=== PATIENT | male | born 1965 | race Caucasian/White ===

== ENCOUNTER → 2024-08-05 | Outpatient (CLI) | payer MEDICAID, SELFPAY ==
--- NOTE | 2024-08-05 09:24 | RAD_ITS ---
PROCEDURE: CHEST PA AND LATERAL REASON FOR EXAM: COPD. TECHNIQUE: Frontal and lateral views of the chest. COMPARISON: None provided. RAD/Chest PA and Lateral IMPRESSION: Lungs are moderately hyperinflated with increased interstitial markings, consis tent with chronic lung disease. Areas of scarring of the lung bases and right upper lung zone are also noted; can not entirely ex clude a small area of pneumonitis, given the underlying chronic changes and lack of a prior comparison study, however. No evidence of pulmonary edema. No pleural effusion or pneumothorax is evident. The cardiomediastinal silhouette is within the normal range. No acute osseous change is seen. Reading Location: [id number]
[2024-08-05 09:40] LABS: Absolute Lymphocyte Count 1.95 X10^3/uL (0.83-4.51); Absolute Neutrophil Count 10.5 X10^3/uL (2.0-7.7); Basophil# 0.04 X10^3/uL; Basophil% 0.3 % (0-1); Eosinophil# 0.01 X10^3/uL; Eosinophils% 0.1 % (0-5); Hematocrit 39.8 % (40-54); Hemoglobin 13.3 g/dL (13.0-16.5); Lymphocyte # 1.95 X10^3/ul (0.83-4.51); Lymphocyte % 13.5 % (19-41); Mean Corp Hgb Conc 33.4 g/dL (32-36); Mean Corpuscular Hgb 28.5 pg (27.0-32.0); Mean Corpuscular Volume 85.4 fL (80-94); Mean Platelet Vol. 10.3 fl (6.2-12.0); Monocyte# 1.75 X10^3/uL; Monocyte% 12.1 % (0-10); NRBC Flagged by Analyzer 0 % (0-5); Neutrophil # 10.51 X10^3/uL (2.7-7.7); POSITIVE DIFFERENTIAL YES; Platelet Count 225 K/mm3 (150-450); RBC Distribution Width CV 15.6 % (11.6-14.6); RBC Distribution Width SD 48.8 fl (35.1-43.9); Red Blood Count 4.66 M/mm3 (4.6-6.2); White Blood Count 14.4 K/mm3 (4.4-11.0)
[2024-08-05 09:45] LABS: Differential Indicated SCAN CRITERIA MET
[2024-08-05 10:03] LABS: Hemoglobin A1c 5.8 % (<=5.6)
[2024-08-05 10:12] LABS: Pathologist Review May foll
[2024-08-05 10:27] LABS: AST(SGOT) 96 U/L (<=37); Alanine Aminotransfer ALT/SGPT 102 U/L (<=46); Albumin, Serum 3.7 g/dL (3.5-5.0); Alkaline Phosphatase 98 U/L (40-129); Anion Gap 15 (5-15); BUN 10 mg/dL (4-19); BUN/Creat Ratio 10.3 RATIO (10-20); Calcium,Total 8.3 mg/dL (7.6-11.0); Carbon Dioxide 20.9 mmol/L (21.0-32.0); Chloride 98 mmol/L (98-108); Cholesterol 125 mg/dL (<=200); Creatinine, Serum 0.97 mg/dL (0.70-1.20); EST Glomerular Filtration Rate 91 (>60); Globulin 3.7 g/dL (2.2-4.2); Glucose 114 mg/dL (70-99); High Density Lipoprotein 54 mg/dL; Low Density Lipoprotein Calc. 47 mg/dL; Potassium 3.7 mmol/L (3.3-5.1); Protein, Total 7.4 g/dL (5.9-8.4); Sodium Level 134 mmol/L (133-145); Total Bilirubin 0.77 mg/dL (0.00-1.30); Triglycerides 118 mg/dL; Very Low Density Lipoprotein 24 mg/dL (5-40); cholesterol:hdl ratio screen 2.31
[2024-08-05 10:36] LABS: Vitamin B12 443 pg/mL (180-914); Vitamin D,25 Hydroxy 13.7 ng/mL (30-100)
== END | disposition home or self-care (01) ==
PROVIDERS: PCP Nurse Practitioner Family; Referring Provider Nurse Practitioner Family; Visit Provider Nurse Practitioner Family
DX: Z13.1 Encounter for screening for diabetes mellitus (principal); J44.9 Chronic obstructive pulmonary disease, unspecified; R53.83 Other fatigue; Z13.220 Encounter for screening for lipoid disorders
CPT/HCPCS: 36415; 71046; 80053; 80061; 82306; 82607; 83036; 84443; 85025

== ENCOUNTER 2024-08-07 08:04 | Inpatient (IN) | payer MEDICAID, SELFPAY ==
[2024-08-07] VITALS (13 sets, daily range): BP systolic 104–116; BP diastolic 62–81; PULSE 78–110; RESP 16–24; TEMP 36.7–37.2; O2SAT 93–97; BMI 18.8
--- NOTE | 2024-08-07 08:12 | EKG12_ITS ---
Test Reason : SOB Blood Pressure : */* mmHG Vent. Rate : 99 BPM Atrial Rate : 99 BPM P-R Int : 122 ms QRS Dur : 88 ms QT Int : 358 ms P-R-T Axes : 74 75 68 degrees QTcB Int : 459 ms Normal sinus rhythm Normal ECG Confirmed by Scottie Reyna ([id number]), assistant production editor RUBEN ZHENG ([id number]) on 08/09/2024 10:53:48 AM Referred By: TB Confirmed By: Scottie Reyna
[2024-08-07] MEDS: Ipratropium/Albuterol Sulfate 3 ML AMPUL.NEB INHALATION ×4 (08:26→23:55)
--- NOTE | 2024-08-07 08:27 | EDS_ITS ---
HPI History of Present Illness Chief Complaint: Shortness of Breath Narrative Narrative: Patient is a 58-year-old male with no significant past medical history per patient however does not follow with a physician on a regular basis who presents to the emergency department with a chief complaint of cough and shortness of breath. He states that he should have been here last week however he states that he was trying to wait it out and thought he would get better. He states that his shortness of breath has been worsening and he has had increased sputum production with blood noted. Patient denies any blood thinning medications. Patient states that his last cigarette was about a week ago now as he was not feeling well. Denies any sick contacts denies any history of blood clots denies any recent travel [facility] Medical History COPD (chronic obstructive pulmonary disease) Home Medications ?Medication ?Instructions ?Recorded ?Last Taken ?Type albuterol sulfate 90 mcg/actuation 2 puff inhalation Q 4H PRN dyspnea 08/07/24 Unknown History aerosol inhaler Allergy/AdvReac Type Severity Reaction Status Date / Time No Known Allergies Allergy Verified 08/07/24 08:05 Social History Smoking Status: Current every day smoker tobacco type: cigarettes ROS ROS ED ROS Narrative Constitutional: Complains of chills denies fever, lightheadedness, dizziness Cardiovascular: Denies chest pain or palpitations Respiratory: Complains of cough and shortness of breath as noted above Abdomen: Denies abdominal pain nausea vomit diarrhea : Denies urinary symptoms Neurological: Denies numbness, weakness, tingling Musculoskeletal: Denies back pain Skin: Denies rashes or lesions EXAM Physical Exam Narrative Exam Narrative: General: Patient was lying in bed rest comfortably did not appear to be in acute distress Head: Atraumatic, normocephalic Eyes: PERRL bilaterally, EOMI bilaterally, no conjunctival injection noted Neck: Soft, supple and trachea midline Cardiovascular: Patient tachycardic with a regular rhythm no murmurs gallops rubs noted Respiratory: Diminished breath sounds bilaterally Abdomen: Soft, nondistended, nontender to palpation Extremities: +5/5 strength noted in the bilateral upper and lower extremity, radial pulses +2/4 in the bilateral extremities, no pedal edema no exam Neurological: Patient following commands knew that he was at [facility] years 2024 Skin: Warm, dry, intact no rashes or lesions noted Const Vital Signs: 08/07/24 08:05 08/07/24 08:05 08/07/24 08:12 Temperature 98.1 F Temperature Source Oral Pulse Rate 106 H Respiratory Rate 22 H Respiratory Effort Short of Breath Labored Respiratory Pattern Blood Pressure 116/81 H Blood Pressure Mean 92 Pulse Ox 93 95 Oxygen Delivery Method Room Air Nasal Cannula Nasal Cannula Oxygen Flow Rate (L/min) 2 2 08/07/24 08:14 08/07/24 08:23 08/07/24 08:27 Temperature Temperature Source Pulse Rate 93 Respiratory Rate 16 Respiratory Effort Respiratory Pattern Normal Blood Pressure Blood Pressure Mean Pulse Ox 96 97 Oxygen Delivery Method Nasal Cannula Nasal Cannula Oxygen Flow Rate (L/min) 2 2 MDM MDM MDM Narrative Medical decision making narrative: Patient is a 58-year-old male who presented to the emerged part with chief complaint of cough and shortness of breath. On the differential diagnose includes but not limited to pneumonia, upper respiratory infection secondary viral etiology, ACS. Once workup is obtained reviewed he will be reevaluated. Patient be given 30 cc/kg bolus of fluids this was ordered at 8:15 AM. Patient be given a DuoNeb to see if this helps his shortness of breath. He has no formal diagnosis of COPD but once again does not follow with a physician and has been a longtime smoker. Patient CBC was significant for leukocytosis of 14,000, hemoglobin 12.9, plate count was noted be 337. Patient sodium 132, potassium normal 3.4, creatinine noted be 0.87 patient does have an anion gap of 17, glucose was noted to be 110. Patient lactic acidosis of 2.2, AST and ALT were 30 and 57 respectively, proBNP was noted be 181. Patient chest x-ray reviewed by myself and by radiology showed stable emphysema no acute thoracic findings. Patient's EKG was reviewed and showed sinus rhythm with a rate of 99 bpm. Patient test positive for COVID. Patient did desaturate on room air to 87% not normally on oxygen. At this point in time will discuss case with hospitalist for admission acute hypoxic respiratory failure, COVID-19, likely COPD exacerbation with increased sputum production therefore he was given Rocephin and azithromycin at 8:54 AM. Discussed case with Dr. Sandoval hospitalist who accept patient for admission. Patient notified is agreeable to plan all question concerns answered. Lab Data Labs: Laboratory Results - last 24 hr 08/07/24 08:10 WBC 14.4 H RBC 4.42 L Hgb 12.9 L Hct 37.0 L MCV 83.7 MCH 29.2 MCHC 34.9 RDW Std Deviation 45.1 H RDW Coeff of Yogesh 14.8 H Plt Count 337 MPV 10.2 Immature Gran % (Auto) 0.800 Neut % (Auto) 67.7 Lymph % (Auto) 13.1 L [place] % (Auto) 18.1 H Eos % (Auto) 0.1 Baso % (Auto) 0.2 Absolute Neuts (auto) 9.8 H Absolute Lymphs (auto) 1.89 Nucleated RBC % 0 Diff Path Review September foll PT 13.0 INR 1.0 APTT 35.9 Sodium 132 L Potassium 3.4 Chloride 94 L Carbon Dioxide 21.3 Anion Gap 17 H BUN 9 Creatinine 0.89 Estim Creat Clear Calc 70.72 Est GFR (MDRD) Non-Af 100 BUN/Creatinine Ratio 10.0 Glucose 110 H Lactic Acid 2.2 H* Calcium 8.3 Total Bilirubin 0.99 AST 38 ALT 57 H Alkaline Phosphatase 94 Troponin T High Sens 12 NT pro BNP II 181 Total Protein 7.5 Albumin 3.5 Globulin 3.9 Albumin/Globulin Ratio 0.9 Radiography Diagnostic Testing: Clinical Impression(s) from Imaging Studies Chest X-Ray 08/07/24 08:37 IMPRESSION: Stable emphysema. No acute thoracic finding. Reading Location: [facility] Discharge Plan Triage Chief Complaint: Shortness of Breath ED Provider: Fredy Santos Dx/Rx/DC Orders Clinical Impression: Acute hypoxic respiratory failure, COVID-19, Cough, Shortness of breath Prescriptions: No Action albuterol sulfate 90 mcg/actuation HFA aerosol inhaler 2 puff INHALATION Q4H PRN (Reason: dyspnea) Patient Comments: pt needs refilled Primary Care Provider: Kelli Morejon Referrals: Kelli Morejon, EDITORIAL DIRECTOR-C [Primary Care Provider] - Print Language: Mohawk Disposition Disposition: [facility]
[2024-08-07 08:28] LABS: Absolute Lymphocyte Count 1.89 X10^3/uL (0.83-4.51); Absolute Neutrophil Count 9.8 X10^3/uL (2.0-7.7); Basophil# 0.03 X10^3/uL; Basophil% 0.2 % (0-1); Eosinophil# 0.01 X10^3/uL; Eosinophils% 0.1 % (0-5); Hemoglobin 12.9 g/dL (13.0-16.5); Lymphocyte # 1.89 X10^3/ul (0.83-4.51); Lymphocyte % 13.1 % (19-41); Mean Corp Hgb Conc 34.9 g/dL (32-36); Mean Corpuscular Hgb 29.2 pg (27.0-32.0); Mean Corpuscular Volume 83.7 fL (80-94); Mean Platelet Vol. 10.2 fl (6.2-12.0); Monocyte# 2.61 X10^3/uL; Monocyte% 18.1 % (0-10); NRBC Flagged by Analyzer 0 % (0-5); Neutrophil # 9.78 X10^3/uL (2.7-7.7); Neutrophil % 67.7 % (47-70); POSITIVE DIFFERENTIAL YES; Platelet Count 337 K/mm3 (150-450); RBC Distribution Width CV 14.8 % (11.6-14.6); RBC Distribution Width SD 45.1 fl (35.1-43.9); Red Blood Count 4.42 M/mm3 (4.6-6.2); White Blood Count 14.4 K/mm3 (4.4-11.0)
[2024-08-07 08:29] LABS: Differential Indicated SCAN CRITERIA MET
--- NOTE | 2024-08-07 08:37 | RAD_ITS ---
PROCEDURE: CHEST PA AND LATERAL REASON FOR EXAM: 58-year-old male, productive cough with blood-tinged phlegm, shortness of breath. TECHNIQUE: Frontal and lateral views of the chest. COMPARISON: Chest radiograph 08/05/2024. FINDINGS: The heart size is normal. The mediastinal contour is unremarkable. Stable findings of emphysema. No focal consolidation, pleural effusion or pneumothorax. Degenerative changes are identified within the thoracic spine. RAD/Chest PA and Lateral IMPRESSION: Stable emphysema. No acute thoracic finding. Reading Location: [id number]
[2024-08-07 08:44] LABS: Partial Thromboplast Time 35.9 Seconds (24.1-36.2)
[2024-08-07 08:47] LABS: ALB/GLOB Ratio 0.9 RATIO (0.9-2.4); AST(SGOT) 38 U/L (<=37); Alanine Aminotransfer ALT/SGPT 57 U/L (<=46); Albumin, Serum 3.5 g/dL (3.5-5.0); Alkaline Phosphatase 94 U/L (40-129); Anion Gap 17 (5-15); BUN 9 mg/dL (4-19); Calcium,Total 8.3 mg/dL (7.6-11.0); Carbon Dioxide 21.3 mmol/L (21.0-32.0); Chloride 94 mmol/L (98-108); Creatinine, Serum 0.89 mg/dL (0.70-1.20); EST Glomerular Filtration Rate 100 (>60); Estimated Creatinine Clearance 70.72 ml/min (50-250); Globulin 3.9 g/dL (2.2-4.2); Glucose 110 mg/dL (70-99); Potassium 3.4 mmol/L (3.3-5.1); Pro- Brain NATRIURETIC PEPTIDE 181 pg/mL (<=900); Protein, Total 7.5 g/dL (5.9-8.4); Sodium Level 132 mmol/L (133-145); Total Bilirubin 0.99 mg/dL (0.00-1.30); Troponin T High Sensitivity 12 ng/L (<=22)
[2024-08-07 08:49] LABS: Lactic Acid 2.2 mmol/L (0.0-2.0)
[2024-08-07 09:06] LABS: Pathologist Review May foll
[2024-08-07] MEDS: 0.9% Normal Saline (1000mL) 1,000 ML 999 ML IV ×2 (09:15→09:17)
[2024-08-07] MEDS: predniSONE 20 MG Tablet 60 MG PO (09:15)
--- NOTE | 2024-08-07 09:37 | HP.PCM.HOS_ITS ---
HPI - General General Date of Admission: 08/07/24 Date of Service: 08/07/24 Chief Complaint: Shortness of breath cough sputum production for about 1 month HPI Narrative SHANTE MONTANEZ, is a 58 M homeless came to ED for 1 month history of shortness of breath cough with the sputum mainly thick yellow consistency for about 1 month. His symptoms got worse for about 1.5 weeks and then he started smoking otherwise has been smoking about a pack since age of 10. He also had one-time blood-tinged sputum. He feels subjective hot and cold/chills. He has chest tightness anteriorly mainly on coughing, localized pleuritic in nature. Patient was also hypoxic, documented 87% on room air on triage note as per ER physician he desaturates on walking. He tested COVID-positive in ED Patient had chest x-ray in ED which did not show acute cardiopulmonary abnormality but chronic changes suggestive of COPD. [facility] Medical History Former smoker COPD (chronic obstructive pulmonary disease) Home Medications ?Medication ?Instructions ?Recorded ?Last Taken ?Type albuterol sulfate 90 mcg/actuation 2 puff inhalation Q 4H PRN dyspnea 08/07/24 Unknown History aerosol inhaler Allergy/AdvReac Type Severity Reaction Status Date / Time No Known Allergies Allergy Verified 08/07/24 08:05 Social History Smoking Status: Current every day smoker tobacco type: cigarettes ROS ROS Narrative Constitutional: Worsening chronic fatigue for last 3 to 4 weeks. Intermittent fever. Subjective did not follow any PCP or physician. Has not seen any physician in 20 years HEENT: Reports systems reviewed and no addt'l complaints, except as documented Respiratory/Chest: Slight hemoptysis 1 blood-tinged sputum. Right described in HPI. Chronic smoker CVS: Chest tightness as described in HPI. Denies prior cardiac disease Gastrointestinal: Denies coffee ground emesis, hematemesis or vomiting Genitourinary: Denies burning urination or new urinary tract symptoms Musculoskeletal: Denies acute joint pain or limited range of motion. No acute injury Neurologic: Denies seizure-like symptoms. skin: No ulcer. No rash Endocrinology: Reports systems reviewed and no addt'l complaints, except as documented Hematologic/Lymphatic: Reports systems reviewed and no addt'l complaints, except as documented Rest 14 ROS are negative except as mentioned in HPI Vital Signs Vital Signs Vital Signs: 08/07/24 08:05 08/07/24 08:05 08/07/24 08:12 Temperature 98.1 F Temperature Source Oral Pulse Rate 106 H Respiratory Rate 22 H Respiratory Effort Short of Breath Labored Respiratory Pattern Blood Pressure 116/81 H Blood Pressure Mean 92 Pulse Ox 93 95 Oxygen Delivery Method Room Air Nasal Cannula Nasal Cannula Oxygen Flow Rate (L/min) 2 2 08/07/24 08:14 08/07/24 08:23 08/07/24 08:27 Temperature Temperature Source Pulse Rate 93 Respiratory Rate 16 Respiratory Effort Respiratory Pattern Normal Blood Pressure Blood Pressure Mean Pulse Ox 96 97 Oxygen Delivery Method Nasal Cannula Nasal Cannula Oxygen Flow Rate (L/min) 2 2 Weight Weight: 120 lb 5.958 oz Body Mass Index (BMI) 18.8 Physical Exam Narrative General: Alert, Oriented x3, Cooperative HEENT: Atraumatic, PERRLA, EOMI, Normocephalic Oral: No Gingival or Mucosal Lesions/ Ulcerations Neck: Supple, No JVD, Negative Carotid Bruits Chest wall/Lungs: Air entry severely diminished in both lungs. Bilateral expiratory rhonchi. Constant cough Cardiovascular: Sinus tachycardia, Normal S1, Normal S2, No M/G/R Abdomen: Bowel Sounds Present, Soft, Non Tender, Non-Distended : No dysuria. No renal angle tenderness. No suprapubic tenderness. Extremities: No edema, Capillary Refill Less than 3 Seconds Skin: No rashes, No breakdown Musculoskeletal: No Tenderness to Palpation of Joints or Extremities. Moderate atrophy of muscles of extremity, craniofacial and dermatomal muscles. Neurological: Cranial nerves II-XII grossly intact, DTR 2+/4. No acute focal neurological deficit. Psych/Mental Status: Flat affect Results Lab / Micro Data 08/07/24 08:10 08/07/24 08:10 Labs: Laboratory Results - last 24 hr 08/07/24 08:10: WBC 14.4 H, RBC 4.42 L, Hgb 12.9 L, Hct 37.0 L, MCV 83.7, MCH 29.2, MCHC 34.9, RDW Std Deviation 45.1 H, RDW Coeff of Yogesh 14.8 H, Plt Count 337, MPV 10.2, Immature Gran % (Auto) 0.800, Neut % (Auto) 67.7, Lymph % (Auto) 13.1 L, [place] % (Auto) 18.1 H, Eos % (Auto) 0.1, Baso % (Auto) 0.2, Absolute Neuts (auto) 9.8 H, Absolute Lymphs (auto) 1.89, Nucleated RBC % 0, Diff Path Review September, PT 13.0, INR 1.0, APTT 35.9, Sodium 132 L, Potassium 3.4, C hloride 94 L, Carbon Dioxide 21.3, Anion Gap 17 H, BUN 9, Creatinine 0.89, Estim Creat Clear Calc 70.72, Est GFR (MDRD) Non-Af 100, BUN/Creatinine Ratio 10.0, G lucose 110 H, Lactic Acid 2.2 H*, Calcium 8.3, Total Bilirubin 0.99, AST 38, ALT 57 H, Alkaline Phosphatase 94, Troponin T High Sens 12, NT pro BNP II 181, Total Protein 7.5, Albumin 3.5, Globulin 3.9, Albumin/Globulin Ratio 0.9 Micro: Microbiology 08/07/24 08:17 Mucosa - Nose SARS-CoV-2, Influenza & RSV (PCR) - Final SARS-CoV-2 (COVID 19 PCR) Imaging Radiology Impression Chest X-Ray 08/07/24 08:37 IMPRESSION: Stable emphysema. No acute thoracic finding. Reading Location: [facility] Assessment & Plan Assessment/Plan (1) COVID-19: PLAN: Plan This is 58-year-old gentleman being admitted for being sick for about 1 month with productive cough, shortness of breath and subjective fever. 1. Subacute COVID-19 infection probably bronchitis with mild hypoxia: Patient is being admitted to MedSurg floor. Vitals shows pulse ox 97% on 2 L of oxygen, mild tachypnea and sinus tachycardia 106 beats minute. Chest x-ray and EKG reviewed. EKG shows NSR at 99 bpm. COVID-19 PCR positive. Patient is started on dexamethasone, bronchodilator, incentive spirometry and Mucinex DM. Does not meet criteria for remdesivir. Chest x-ray does not show acute thoracic finding but chronic interstitial changes suggestive of COPD therefore CT chest ordered. Pulmonology consult also requested patient having prolonged symptoms for about 1 month. Empirically patient got 1 dose of IV ceftriaxone and azithromycin in ED. Patient mild leukocytosis, procalcitonin 0.16, lactic acidosis, but is not meet criteria for sepsis. 2. Possible COPD exacerbation from COVID-19 bronchitis: Patient is being managed on scheduled bronchodilator, IV dexamethasone, Mucinex, Zithromax incentive spirometry and Pep. 3. Chest tightness most likely pleuritic in nature: First troponin negative. Second troponin ordered. 4. Chronic smoker: Did not smoke for the last 1.5 weeks. Advised to quit. Nicotine patch offered 5. DVT prophylaxis: Lovenox 40 mL SQ daily.Discontinue if platelet count drops less than 50,000 or hemoglobin less than 8 g% Living will/advanced directive/end of life care: Patient does not have living will or advanced directive. He does not have daycare power of commonwealth attorney for health. Next to kin his son but he does not have his cell phone number. After discussion of benefits/risks procedures involved with full code, DNR CC arrest and DNR CC, the patient opted for full code. Patient does want artificial life support including intubation, tube feed, ventilator and/chest compression, central venous catheter, vasopressor and DC shock if needed Total time spent in [id number] encounter in discussion of advanced directive 17 minutes. Microbiology Past 72 Hours 08/07/24 08:17 Mucosa - Nose SARS-CoV-2, Influenza & RSV (PCR) - Final SARS-CoV-2 (COVID 19 PCR) Laboratory Results 08/07/24 08:10: WBC 14.4 H, RBC 4.42 L, Hgb 12.9 L, Hct 37.0 L, MCV 83.7, MCH 29.2, MCHC 34.9, RDW Std Deviation 45.1 H, RDW Coeff of Yogesh 14.8 H, Plt Count 337, MPV 10.2, Immature Gran % (Auto) 0.800, Neut % (Auto) 67.7, Lymph % (Auto) 13.1 L, [place] % (Auto) 18.1 H, Eos % (Auto) 0.1, Baso % (Auto) 0.2, Absolute Neuts (auto) 9.8 H, Absolute Lymphs (auto) 1.89, Nucleated RBC % 0, Diff Path Review September foll, PT 13.0, INR 1.0, APTT 35.9, Sodium 132 L, Potassium 3.4, C hloride 94 L, Carbon Dioxide 21.3, Anion Gap 17 H, BUN 9, Creatinine 0.89, Estim Creat Clear Calc 70.72, Est GFR (MDRD) Non-Af 100, BUN/Creatinine Ratio 10.0, G lucose 110 H, Lactic Acid 2.2 H*, Calcium 8.3, Total Bilirubin 0.99, AST 38, ALT 57 H, Alkaline Phosphatase 94, Troponin T High Sens 12, NT pro BNP II 181, Total Protein 7.5, Albumin 3.5, Globulin 3.9, Albumin/Globulin Ratio 0.9 08/07/24 08:20: Magnesium Pending, Lactate Dehydrogenase Pending, Total Creatine Kinase Pending, C-React Prot Ext Range Pending, NT pro BNP II Pending, P rocalcitonin 0.16 H Clinical Impression(s) from Imaging Studies Chest X-Ray 08/07/24 08:37 IMPRESSION: Stable emphysema. No acute thoracic finding. Charges/Coding Visit Charges Inpatient E&M: 72239 Subs Hosp L2 Procedures Hospitalists Procedures: 75152 Advncd Care Plan 30 Min
[2024-08-07 12:18] LABS: Procalcitonin 0.16 ng/mL (<=0.10)
--- NOTE | 2024-08-07 12:20 | CT_ITS ---
PROCEDURE: CHEST WITHOUT CONTRAST REASON FOR EXAM: 58-year-old male, COPD with cough. TECHNIQUE: Chest CT without contrast. COMPARISON: Same day chest radiograph. FINDINGS: Hardware: None. Lymph nodes: No mediastinal, hilar or axillary lymphadenopathy. Heart and Vasculature: The heart is normal in size without pericardial effusion. Mild coronary artery and thoracic aortic calcifications. Thoracic aorta and pulmonary arteries have normal contours; noncontrast technique limits evaluation. Lungs and Airways: Central airways are patent. Moderate emphysema and scattered areas of scarring. Bronchiectasis and centrilobular thickening, with small centrilobular nodules and small patchy consolidations, greatest in the bibasilar lungs. No pleural effusion or pneumothorax. Upper Abdomen: Visualized portions of the upper abdominal viscera are unremarkable. Bones: Bone windows are unremarkable. CT/Chest without Contrast IMPRESSION: 1. 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 2. Moderate emphysema. One or more dose reduction techniques were used (e.g., Automated exposure contr ol, adjustment of the mA and/or kV according to patient size, use of iterative reconstruction technique). Reading Location: [id number]
[2024-08-07] MEDS: 0.9% Normal Saline (100mL Bag) 100 ML 15 ML IV (12:28)
[2024-08-07] MEDS: dexAMETHasone 10 MG/ML Vial 6 MG IV (13:13)
[2024-08-07] MEDS: Azithromycin 500 MG in 0.9% Normal Saline (250mL Bag) 250 ML 250 MG IV (13:14)
[2024-08-07] MEDS: 0.9% Saline Lock 10 ML Syringe IV (13:14)
[2024-08-07] MEDS: Pantoprazole Sodium 40 MG Tablet PO (13:15)
[2024-08-07] MEDS: Enoxaparin 40 MG/0.4 ML Syringe SC (13:15)
[2024-08-07 14:04] LABS: LDH 399 U/L (87-241); Magnesium 2.2 mg/dL (1.5-2.2)
[2024-08-07 14:24] LABS: Troponin T High Sensitivity 12 ng/L (<=22)
[2024-08-07 16:08] LABS: CPK Total, Creatine Kinase 351 U/L (24-195); Pro- Brain NATRIURETIC PEPTIDE 187 pg/mL (<=900)
[2024-08-08] VITALS (11 sets, daily range): BP systolic 99–114; BP diastolic 60–72; PULSE 80–102; RESP 18–22; TEMP 36.5–37; O2SAT 93–98
[2024-08-08 05:17] LABS: Absolute Lymphocyte Count 1.55 X10^3/uL (0.83-4.51); Absolute Neutrophil Count 11.1 X10^3/uL (2.0-7.7); Basophil# 0.03 X10^3/uL; Basophil% 0.2 % (0-1); Hematocrit 30.6 % (40-54); Hemoglobin 10.5 g/dL (13.0-16.5); Lymphocyte # 1.55 X10^3/ul (0.83-4.51); Lymphocyte % 10.5 % (19-41); Mean Corp Hgb Conc 34.3 g/dL (32-36); Mean Corpuscular Hgb 28.8 pg (27.0-32.0); Mean Corpuscular Volume 83.8 fL (80-94); Mean Platelet Vol. 10.1 fl (6.2-12.0); Monocyte# 1.94 X10^3/uL; Monocyte% 13.1 % (0-10); NRBC Flagged by Analyzer 0 % (0-5); Neutrophil # 11.08 X10^3/uL (2.7-7.7); POSITIVE DIFFERENTIAL YES; Platelet Count 353 K/mm3 (150-450); RBC Distribution Width CV 14.8 % (11.6-14.6); RBC Distribution Width SD 45.6 fl (35.1-43.9); Red Blood Count 3.65 M/mm3 (4.6-6.2); White Blood Count 14.8 K/mm3 (4.4-11.0)
[2024-08-08 05:22] LABS: Differential Indicated SCAN CRITERIA MET
[2024-08-08 05:57] LABS: Anion Gap 12 (5-15); BUN 11 mg/dL (4-19); BUN/Creat Ratio 14.7 RATIO (10-20); Carbon Dioxide 21.4 mmol/L (21.0-32.0); Chloride 102 mmol/L (98-108); Creatinine, Serum 0.72 mg/dL (0.70-1.20); EST Glomerular Filtration Rate 107 (>60); Estimated Creatinine Clearance 87.58 ml/min (50-250); Glucose 156 mg/dL (70-99); Potassium 3.3 mmol/L (3.3-5.1); Sodium Level 136 mmol/L (133-145)
[2024-08-08 06:10] LABS: Pathologist Review May foll
--- NOTE | 2024-08-08 07:47 | PN.HOSP_ITS ---
Reason for Visit Reason for Visit: Diagnoses COVID-19 (08/07/24) Objective Data Objective Data Vital Signs: Vital Signs Temp Pulse Resp BP Pulse Ox O2 Del Method O2 Flow Rate 98.4 F 80 18 107/68 98 Nasal Cannula 2 08/08/24 03:45 08/08/24 03:45 08/08/24 03:45 08/08/24 03:45 08/08/24 03:45 08/08/24 03:45 08/08/24 03:45 FiO2 95 08/07/24 10:56 Oxygen Flow Rate (L/min) 2 Oxygen Delivery Method Nasal Cannula Weight: 120 lb 9.486 oz Body Mass Index (BMI) 18.8 Intake & Output: Intake and Output for Last 24 Hours 08/06/24 08/07/24 08/09/24 23:59 23:59 00:59 Intake Total 1303.3 / 1303.3 Output Total 350 / 350 Balance 953.3 / 953.3 Lab / Micro Data 08/08/24 05:01 08/08/24 05:01 Labs: Laboratory Results - last 24 hr 08/07/24 08:10: WBC 14.4 H, RBC 4.42 L, Hgb 12.9 L, Hct 37.0 L, MCV 83.7, MCH 29.2, MCHC 34.9, RDW Std Deviation 45.1 H, RDW Coeff of Yogesh 14.8 H, Plt Count 337, MPV 10.2, Immature Gran % (Auto) 0.800, Neut % (Auto) 67.7, Lymph % (Auto) 13.1 L, [place] % (Auto) 18.1 H, Eos % (Auto) 0.1, Baso % (Auto) 0.2, Absolute Neuts (auto) 9.8 H, Absolute Lymphs (auto) 1.89, Nucleated RBC % 0, Diff Path Review September, PT 13.0, INR 1.0, APTT 35.9, Sodium 132 L, Potassium 3.4, C hloride 94 L, Carbon Dioxide 21.3, Anion Gap 17 H, BUN 9, Creatinine 0.89, Estim Creat Clear Calc 70.72, Est GFR (MDRD) Non-Af 100, BUN/Creatinine Ratio 10.0, G lucose 110 H, Lactic Acid 2.2 H*, Calcium 8.3, Total Bilirubin 0.99, AST 38, ALT 57 H, Alkaline Phosphatase 94, Troponin T High Sens 12, NT pro BNP II 181, Total Protein 7.5, Albumin 3.5, Globulin 3.9, Albumin/Globulin Ratio 0.9 08/07/24 08:20: Magnesium 2.2, Lactate Dehydrogenase 399 H, Total Creatine Kinase 351 H, C-React Prot Ext Range 117.00 H, NT pro BNP II 187, Procalcitonin 0.16 H 08/07/24 13:53: Troponin T High Sens 12 08/08/24 05:01: WBC 14.8 H, RBC 3.65 L, Hgb 10.5 L, Hct 30.6 L, MCV 83.8, MCH 28.8, MCHC 34.3, RDW Std Deviation 45.6 H, RDW Coeff of Yogesh 14.8 H, Plt Count 353, MPV 10.1, Immature Gran % (Auto) 1.200 H, Neut % (Auto) 75.0 H, Lymph % (Auto) 10.5 L, [place] % (Auto) 13.1 H, Eos % (Auto) 0.0, Baso % (Auto) 0.2, A bsolute Neuts (auto) 11.1 H, Absolute Lymphs (auto) 1.55, Nucleated RBC % 0, Diff Path Review September, Sodium 136, Potassium 3.3, Chloride 102, Carbon Dioxide 21.4, Anion Gap 12, BUN 11, Creatinine 0.72, Estim Creat Clear Calc 87.58, Est GFR (MDRD) Non-Af 107, BUN/Creatinine Ratio 14.7, Glucose 156 H, Calcium 8.0 Micro: Microbiology 08/07/24 15:03 Nasal Secretion MRSA (PCR) - Final 08/07/24 13:10 Urine, Clean Catch Legionella Antigen - Final 08/07/24 13:10 Urine, Clean Catch Streptococcus pneumoniae Antigen (M - Final 08/07/24 08:17 Mucosa - Nose SARS-CoV-2, Influenza & RSV (PCR) - Final SARS-CoV-2 (COVID 19 PCR) Radiography Diagnostic Testing: Radiology Impression Chest X-Ray 08/07/24 08:37 IMPRESSION: Stable emphysema. No acute thoracic finding. Reading Location: [facility] Chest CT 08/07/24 12:20 IMPRESSION: 1. Bronchiectasis, centrilobular thickening and nodules with small patchy consolidations, most compatible with infectious/inflammatory pneumonitis such as mycobacterium avium complex (MAC). 2. Moderate emphysema. One or more dose reduction techniques were used (e.g., Automated exposure control, adjustment of the mA and/or kV according to patient size, use of iterative reconstruction technique). Reading Location: [facility] Physical Exam Narrative Subjectively, patient states cough is better. No acute shortness of breath but dyspnea on exertion. Lifetime smoker 1.5 packet/day states quit about 1.5 weeks ago Physical exam General: Alert, Oriented x3, Cooperative HEENT: Atraumatic, PERRLA, EOMI, Normocephalic Oral: No Gingival or Mucosal Lesions/ Ulcerations Neck: Supple, No JVD, Negative Carotid Bruits Chest wall/Lungs: Air entry severely diminished in both lungs. Bilateral expiratory rhonchi. Cardiovascular: Sinus tachycardia, Normal S1, Normal S2, No M/G/R Abdomen: Bowel Sounds Present, Soft, Non Tender, Non-Distended : No dysuria. No renal angle tenderness. No suprapubic tenderness. Extremities: No edema, Capillary Refill Less than 3 Seconds Skin: No rashes, No breakdown Musculoskeletal: No Tenderness to Palpation of Joints or Extremities. Moderate atrophy of muscles of extremity, craniofacial and dermatomal muscles. Neurological: Cranial nerves II-XII grossly intact, DTR 2+/4. No acute focal neurological deficit. Psych/Mental Status: Flat affect Assessment & Plan Assessment/Plan (1) COVID-19: PLAN: Plan This is 58-year-old gentleman being admitted for being sick for about 1 month with productive cough, shortness of breath and subjective fever. Chronic cough for 6 to 7 years. Homeless. 1. Subacute COVID-19 infection probably bronchitis with mild hypoxia: Patient is being admitted to [facility] floor. Vitals shows pulse ox 97% on 2 L of oxygen, mild tachypnea and sinus tachycardia 106 beats minute. Chest x-ray and EKG reviewed. EKG shows NSR at 99 bpm. COVID-19 PCR positive. Patient is started on dexamethasone, bronchodilator, incentive spirometry and Mucinex DM. Does not meet criteria for remdesivir. Chest x-ray does not show acute thoracic finding but chronic interstitial changes suggestive of COPD therefore CT chest ordered. Pulmonology consult also requested patient having prolonged symptoms for about 1 month. Empirically patient got 1 dose of IV ceftriaxone and azithromycin in ED. Patient mild leukocytosis, procalcitonin 0.16, lactic acidosis, but is not meet criteria for sepsis. 08/08: Urinary antigens are negative. MRSA nasal screen negative. Patient was seen byTele-coordinator integrated marketing. CT chest reviewed. Patient does not have a history of unintentional weight loss but night sweats for last 1 and half months. 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 Last employed 2015. CT chest shows bronchiectasis, centrilobular thickening and nodules, small patchy consolidation and bronchial wall thickening and some fibrotic changes. Moderate emphysema. Did not had formal PFT to diagnose COPD. Patient Services Rep recommended bronchoscopy tomorrow to rule out atypical infection. Hold for VTE prophylaxis. Outpatient PFT and pulmonary follow-up. 2. Possible COPD exacerbation from COVID-19 bronchitis: Patient is being managed on scheduled bronchodilator, IV dexamethasone, Mucinex, Zithromax incentive spirometry and Pep. 3. Chest tightness most likely pleuritic in nature: First troponin negative. Second troponin ordered. 4. Chronic smoker: Did not smoke for the last 1.5 weeks. Advised to quit. Nicotine patch offered 5. DVT prophylaxis: Lovenox 40 mL SQ daily.Discontinue if platelet count drops less than 50,000 or hemoglobin less than 8 g% Moderate chronic malnutrition: Loss of subcutaneous fat and moderate atrophy of muscles of extremities, craniofacial muscles, paravertebral and vertebral muscles Living will/advanced directive/end of life care: Patient does not have living will or advanced directive. He does not have daycare power of patent attorney for health. Next to kin his son but he does not have his cell phone number. After discussion of benefits/risks procedures involved with full code, DNR CC arrest and DNR CC, the patient opted for full code. Patient does want artificial life support including intubation, tube feed, ventilator and/chest compression, central venous catheter, vasopressor and DC shock if needed Total time spent in [id number] encounter in discussion of advanced directive 17 minutes. Microbiology Past 72 Hours 08/07/24 15:03 Nasal Secretion MRSA (PCR) - Final 08/07/24 13:10 Urine, Clean Catch Legionella Antigen - Final 08/07/24 13:10 Urine, Clean Catch Streptococcus pneumoniae Antigen (M - Final 08/07/24 08:17 Mucosa - Nose SARS-CoV-2, Influenza & RSV (PCR) - Final SARS-CoV-2 (COVID 19 PCR) Laboratory Results 08/07/24 08:20: Total Creatine Kinase 351 H, NT pro BNP II 187 08/08/24 05:01: WBC 14.8 H, RBC 3.65 L, Hgb 10.5 L, Hct 30.6 L, MCV 83.8, MCH 28.8, MCHC 34.3, RDW Std Deviation 45.6 H, RDW Coeff of Yogesh 14.8 H, Plt Count 353, MPV 10.1, Immature Gran % (Auto) 1.200 H, Neut % (Auto) 75.0 H, Lymph % (Auto) 10.5 L, [place] % (Auto) 13.1 H, Eos % (Auto) 0.0, Baso % (Auto) 0.2, A bsolute Neuts (auto) 11.1 H, Absolute Lymphs (auto) 1.55, Nucleated RBC % 0, Diff Path Review May foll, Sodium 136, Potassium 3.3, Chloride 102, Carbon Dioxide 21.4, Anion Gap 12, BUN 11, Creatinine 0.72, Estim Creat Clear Calc 87.58, Est GFR (MDRD) Non-Af 107, BUN/Creatinine Ratio 14.7, Glucose 156 H, Calcium 8.0 Clinical Impression(s) from Imaging Studies Chest X-Ray 08/07/24 08:37 IMPRESSION: Stable emphysema. No acute thoracic finding. Reading Location: [facility] Chest CT 08/07/24 12:20 IMPRESSION: 1. Bronchiectasis, centrilobular thickening and nodules with small patchy consolidations, most compatible with infectious/inflammatory pneumonitis such as mycobacterium avium complex (MAC). 2. Moderate emphysema. One or more dose reduction techniques were used (e.g., Automated exposure control, adjustment of the mA and/or kV according to patient size, use of iterative reconstruction technique). Reading Location: [id number] Charges/Coding Visit Charges Inpatient E&M: 73278 Subs Hosp L2
[2024-08-08] MEDS: Ipratropium/Albuterol Sulfate 3 ML AMPUL.NEB INHALATION ×3 (08:09→20:22)
--- NOTE | 2024-08-08 09:42 | CON.PCM.CC_ITS ---
HPI Consult Data Date of Consult: 08/08/24 HPI Narrative Reason for Consultation: Abnormal CT HPI Narrative: 58Y M PMH tobacco abuse (50 years, <1 pdd on average) who is also homeless & has been living in a fdc for the last 1.5 months (prev lived with a friend before eviction) who presented with worsening cough. Pt reports Hx chronic cough for 6-7 years which he describes as sporadic, at times severe enough to cause presyncopal symptoms, occasionally productive with yellow to white phlegm and something he attributed to an increase in his smoking at that time. This cough acutely worsened over the last 3 weeks and became associated with increased phlegm production with streaky hemoptysis. He developed night sweats over the last 1.5 months but denies unintended weight loss. 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 He states he did not always wear PPE during this time. No reported FH lung diseases/cancer. Pt currently reports feeling better with less fatigue overall. Pulmonary medicine consulted after CT showed atypical findings. [facility] Medical History Former smoker COPD (chronic obstructive pulmonary disease) Home Medications ?Medication ?Instructions ?Recorded ?Last Taken ?Type albuterol sulfate 90 mcg/actuation 2 puff inhalation Q 4H PRN dyspnea 08/07/24 Unknown History aerosol inhaler Allergy/AdvReac Type Severity Reaction Status Date / Time No Known Allergies Allergy Verified 08/07/24 08:05 Social History Smoking Status: Current every day smoker tobacco type: cigarettes ROS ROS Narrative Full 12 point ROS completed and neg unless stated in HPI above. Objective Data Objective Data Vital Signs: Vital Signs Last response 3 Temperature 36.8 C 08/08/24 08:05 Temperature Source Oral 08/08/24 08:05 Pulse Rate 86 08/08/24 08:09 Respiratory Rate 22 H 08/08/24 08:09 Respiratory Effort Normal 08/08/24 08:07 Respiratory Depth Normal 08/08/24 03:45 Respiratory Pattern Normal 08/08/24 03:45 Blood Pressure 114/72 08/08/24 08:05 Blood Pressure Mean 86 08/08/24 08:05 Blood Pressure Source Monitor 08/08/24 08:05 Blood Pressure Position Semi-Fowlers 08/08/24 08:05 Blood Pressure Location Right Arm 08/08/24 08:05 Pulse Ox 94 08/08/24 09:37 Oxygen Delivery Method Room Air 08/08/24 09:37 Oxygen Flow Rate (L/min) 2.5 08/08/24 08:09 Fraction of Inspired Oxygen (FIO2) 95 08/07/24 10:56 I&O: I&O Last 24 Hours 3 08/07/24 08/07/24 08/08/24 11:59 23:59 12:59 Intake Total 33.3 / 1303.3 1270 / 1303.3 Output Total 350 / 350 Balance 33.3 / 953.3 920 / 953.3 I&O: Total Stay 3 08/07/24 08:04 thru 08/07/24 18:04 Intake Total 1303.3 Output Total 350 Balance 953.3 Current Meds Ordered / Administered: Current meds ordered / Administered 3 Generic Name Dose Route Start Last Admin Trade Name Freq PRN Reason Stop Dose Admin Acetaminophen 650 mg 08/07/24 11:11 Acetaminophen 325 Mg Tablet PO Q6H PRN PRN Pain 1-10 Or Fever >100.7 Albuterol/Ipratropium 3 ml 08/07/24 11:11 08/08/24 08:09 Ipratropium/Albuterol Sulfate 3 Ml Ampul.Neb INHALATION 3 ml Q4H.RT DEAN Administration Dexamethasone Sodium Phosphate 6 mg 08/07/24 12:00 08/07/24 13:13 Dexamethasone 10 Mg/Ml Vial IV 6 mg DAILY DEAN Administration Enoxaparin Sodium 40 mg 08/07/24 12:00 08/07/24 13:15 Enoxaparin 40 Mg/0.4 Ml Syringe SC 40 mg DAILY DEAN Administration Sodium Chloride 100 mls @ 15 mls/hr 08/07/24 10:47 08/07/24 13:28 IV 0 mls/hr .Q6H40M PRN Infusion Saline Flush Sodium Chloride 100 mls @ 15 mls/hr 08/07/24 10:47 IV .Q6H40M PRN Additional IVPB Infusion Azithromycin 500 mg/ Sodium 255 mls @ 250 mls/hr 08/07/24 11:30 08/07/24 14:55 Chloride IV 08/12/24 11:02 Infused Q24 DEAN Infusion Nitroglycerin 0.4 mg 08/07/24 11:11 Nitroglycerin (Inpatient Use) 0.4 Mg Tab.Subl SL Q5M PRN CARDIAC/CHEST PAIN Pantoprazole Sodium 40 mg 08/07/24 12:00 08/07/24 13:15 Pantoprazole Sodium 40 Mg Tablet PO 40 mg DAILY DEAN Administration Prochlorperazine Edisylate 5 mg 08/07/24 11:11 Prochlorperazine 10 Mg/2 Ml Vial IV Q4H PRN PRN Breakthrough nausea/vomiting Senna/Docusate Sodium 2 tablet 08/07/24 11:11 Senna/Docusate Sodium 1 Tablet PO BID PRN PRN Constipation Sodium Chloride 10 - 40 ml 08/07/24 10:47 08/07/24 13:14 0.9% Saline Lock 10 Ml Syringe IV 10 ml UD PRN Administration SALINE FLUSH Lab / Micro Data 08/08/24 05:01 08/08/24 05:01 Labs: Laboratory Results - last 24 hr 08/07/24 08:10: Diff Path Review September, PT 13.0, INR 1.0, APTT 35.9, Sodium 132 L, Potassium 3.4, Chloride 94 L, Carbon Dioxide 21.3, Anion Gap 17 H, BUN 9, Creatinine 0.89, Estim Creat Clear Calc 70.72, Est GFR (MDRD) Non-Af 100, BUN/Creatinine Ratio 10.0, Glucose 110 H, Lactic Acid 2.2 H*, Calcium 8.3, Total Bilirubin 0.99, AST 38, ALT 57 H, Alkaline Phosphatase 94, Troponin T High Sens 12, NT pro BNP II 181, Total Protein 7.5, Albumin 3.5, Globulin 3.9, Albumin/Globulin Ratio 0.9 08/07/24 08:20: Magnesium 2.2, Lactate Dehydrogenase 399 H, Total Creatine Kinase 351 H, C-React Prot Ext Range 117.00 H, NT pro BNP II 187, Procalcitonin 0.16 H 08/07/24 13:53: Troponin T High Sens 12 08/08/24 05:01: WBC 14.8 H, RBC 3.65 L, Hgb 10.5 L, Hct 30.6 L, MCV 83.8, MCH 28.8, MCHC 34.3, RDW Std Deviation 45.6 H, RDW Coeff of Yogesh 14.8 H, Plt Count 353, MPV 10.1, Immature Gran % (Auto) 1.200 H, Neut % (Auto) 75.0 H, Lymph % (Auto) 10.5 L, [place] % (Auto) 13.1 H, Eos % (Auto) 0.0, Baso % (Auto) 0.2, A bsolute Neuts (auto) 11.1 H, Absolute Lymphs (auto) 1.55, Nucleated RBC % 0, Diff Path Review September foll, Sodium 136, Potassium 3.3, Chloride 102, Carbon Dioxide 21.4, Anion Gap 12, BUN 11, Creatinine 0.72, Estim Creat Clear Calc 87.58, Est GFR (MDRD) Non-Af 107, BUN/Creatinine Ratio 14.7, Glucose 156 H, Calcium 8.0 Micro: Microbiology 08/07/24 15:03 Nasal Secretion MRSA (PCR) - Final 08/07/24 13:10 Urine, Clean Catch Legionella Antigen - Final 08/07/24 13:10 Urine, Clean Catch Streptococcus pneumoniae Antigen (M - Final 08/07/24 08:17 Mucosa - Nose SARS-CoV-2, Influenza & RSV (PCR) - Final SARS-CoV-2 (COVID 19 PCR) Imaging Radiology Impression Chest X-Ray 08/07/24 08:37 IMPRESSION: Stable emphysema. No acute thoracic finding. Reading Location: [facility] Chest CT 08/07/24 12:20 IMPRESSION: 1. Bronchiectasis, centrilobular thickening and nodules with small patchy consolidations, most compatible with infectious/inflammatory pneumonitis such as mycobacterium avium complex (MAC). 2. Moderate emphysema. One or more dose reduction techniques were used (e.g., Automated exposure control, adjustment of the mA and/or kV according to patient size, use of iterative reconstruction technique). Reading Location: [facility] Assessment and Plan . Assessment and plan: PE: General: Well developed, in no distress HEENT: anicteric Sclera, nl nose; supple neck, no masses Cardiovascular: S1/S2; No rubs, gallops; no displaced PM Respiratory: diminished with scattered crackles, no wheezes or rhonchi Abdominal: Non-tender; Non distended; hypoBS x 4; No Hepatosplenomegaly Extremities: Warm, well perfused; No clubbing, cyanosis; capillary refill < 2 sec Skin: intact, no rashes Neurological: A&Ox3; gross deficits appreciated A/P: #Subacute on chronic cough #Hemoptysis #Bronchiectasis with bronchial wall thickening & patchy nodular opacities #COPD/emphysema (not formally Dx by PFTs) with fibrotic changes #Tobacco abuse -Cont emp IV Abx; F/U Cx -Would plan for bronchoscopy tomorrow or Friday when in-house pulmonary team available given hemoptysis and for BAL due to concern for MAC or other atypical infection --> please keep NPO after midnight and hold VTE prophylaxis tonight on the off chance bronchoscopy can be scheduled tomorrow -Outpatient PFTs and on-going pulmonary follow up -Counseling provided re: smoking cessation; patient states he last smoked 1.5 weeks ago and has strong desire to never smoke again The entirety of this encounter was done via Telemedicine
[2024-08-08] MEDS: Azithromycin 500 MG in 0.9% Normal Saline (250mL Bag) 250 ML 250 MG IV (09:45)
[2024-08-08] MEDS: Enoxaparin 40 MG/0.4 ML Syringe SC (09:46)
[2024-08-08] MEDS: Pantoprazole Sodium 40 MG Tablet PO (09:46)
[2024-08-08] MEDS: Acetaminophen 325 MG Tablet 650 MG PO ×2 (09:46→17:56)
[2024-08-08] MEDS: dexAMETHasone 10 MG/ML Vial 6 MG IV (09:46)
[2024-08-08] MEDS: 0.9% Saline Lock 10 ML Syringe IV ×3 (09:47→17:55)
--- NOTE | 2024-08-08 15:42 | NURSING ---
Report called to [facility] at [phone] to Roxy JOHNS
[2024-08-08] MEDS: Ceftriaxone 1 GM/50 ML BAG IV (17:04)
[2024-08-08] MEDS: 0.9% Normal Saline (100mL Bag) 100 ML 15 ML IV (17:04)
[2024-08-09] VITALS (17 sets, daily range): BP systolic 111–157; BP diastolic 60–100; PULSE 82–133; RESP 16–32; TEMP 36.1–36.9; O2SAT 93–100
[2024-08-09 06:02] LABS: Absolute Lymphocyte Count 3.87 X10^3/uL (0.83-4.51); Absolute Neutrophil Count 12.5 X10^3/uL (2.0-7.7); Basophil# 0.13 X10^3/uL; Basophil% 0.7 % (0-1); Eosinophil# 0.02 X10^3/uL; Eosinophils% 0.1 % (0-5); Hematocrit 30.8 % (40-54); Hemoglobin 10.3 g/dL (13.0-16.5); Lymphocyte # 3.87 X10^3/ul (0.83-4.51); Lymphocyte % 19.7 % (19-41); Mean Corp Hgb Conc 33.4 g/dL (32-36); Mean Corpuscular Hgb 28.3 pg (27.0-32.0); Mean Corpuscular Volume 84.6 fL (80-94); Monocyte# 2.31 X10^3/uL; Monocyte% 11.8 % (0-10); NRBC Flagged by Analyzer 0.2 % (0-5); Neutrophil % 63.6 % (47-70); POSITIVE DIFFERENTIAL YES; POSITIVE MORPHOLOGY YES; Platelet Count 437 K/mm3 (150-450); RBC Distribution Width SD 46.2 fl (35.1-43.9); Red Blood Count 3.64 M/mm3 (4.6-6.2); White Blood Count 19.6 K/mm3 (4.4-11.0)
[2024-08-09 06:04] LABS: Differential Indicated SCAN CRITERIA MET
[2024-08-09 07:13] LABS: Platelet Estimate SLT INC (ADEQ); Reactive Lymphocyte 1+
[2024-08-09 07:14] LABS: Platelet Morphology CLUMPED
[2024-08-09 07:16] LABS: Anisocytosis 1+; Ovalocyte 1+; Polychromasia 1+
[2024-08-09 07:17] LABS: Pathologist Review May foll
[2024-08-09 07:50] LABS: Anion Gap 15 (5-15); BUN 12 mg/dL (4-19); BUN/Creat Ratio 15.9 RATIO (10-20); Calcium,Total 8.3 mg/dL (7.6-11.0); Carbon Dioxide 20.9 mmol/L (21.0-32.0); Chloride 105 mmol/L (98-108); Creatinine, Serum 0.72 mg/dL (0.70-1.20); EST Glomerular Filtration Rate 106 (>60); Estimated Creatinine Clearance 87.58 ml/min (50-250); Glucose 110 mg/dL (70-99); Sodium Level 141 mmol/L (133-145)
[2024-08-09] MEDS: 0.9% Saline Lock 10 ML Syringe IV (08:44)
[2024-08-09] MEDS: Azithromycin 500 MG in 0.9% Normal Saline (250mL Bag) 250 ML 250 MG IV (08:44)
[2024-08-09] MEDS: dexAMETHasone 10 MG/ML Vial 6 MG IV (08:45)
[2024-08-09] MEDS: Ceftriaxone 1 GM/50 ML BAG IV (08:45)
[2024-08-09] MEDS: Ipratropium/Albuterol Sulfate 3 ML AMPUL.NEB INHALATION (10:22)
--- NOTE | 2024-08-09 11:05 | PRE.ANES_ITS ---
ASA Classification* ASA Classification ASA Classification: 3 Assessment & Plan Anesthesia* Anesthesia Assessment Anesthesia Assessment: Discussed sedation and/or anesthesia options, risks, benefits, and alternatives with patient/parents/legal guardian/POA. Questions invited. The patient/parents/legal guardian/POA seems to understand and agrees to proceed with anesthesia plan. Reviewed the physical assessment, medical history, allergy history and patient home medications list prior to surgery/procedure/anesthetic and documented any changes. Performed airway and anesthesia risk assessments. Anesthesia Type Anesthesia Type: MAC (Covid positive precautions) Anesthesia Focused Assessment* Temperature: 98.0 F Pulse Rate: 96 Blood Pressure: 127/77 Respiratory Rate: 18 Pulse Ox: 98 Oxygen Flow Rate (L/min): 2.5 Fraction of Inspired Oxygen (FIO2): 95 Airway Assessment Mouth opens: >3 cm Mallampati Score: II Focused Labs Anesthesia Preop lab: CBC WBC 19.6 K/mm3 (4.4-11.0) H 08/09/24 05:44 5 RBC 3.64 M/mm3 (4.6-6.2) L 08/09/24 05:44 08/09/24 Hgb 10.3 g/dL (13.0-16.5) L 08/09/24 05:44 5 Hct 30.8 % (40-54) L 08/09/24 05:44 08/09/24 Plt Count 437 K/mm3 (150-450) 08/09/24 05:44 08/09/24 CHEMISTRY Potassium 3.0 mmol/L (3.3-5.1) L 08/09/24 05:44 08/09/24 Sodium 141 mmol/L (133-145) 08/09/24 05:44 08/09/24 Magnesium 2.2 mg/dL (1.5-2.2) 08/07/24 08:20 08/07/24 BUN 12 mg/dL (4-19) 08/09/24 05:44 08/09/24 Creatinine 0.72 mg/dL (0.70-1.20) 08/09/24 05:44 08/09/24 Glucose 110 mg/dL (70-99) H 08/09/24 05:44 08/09/24 TSH 1.340 uIU/mL (0.300-4.200) 08/05/24 09:22 03/0 11/24 COAG PT 13.0 SECONDS (11.7-14.9) 08/07/24 08:10 Pre-Assessment Diagnosis/Proposed Procedure Planned Operative Procedure(s): Bronchoscopy Anesthesia History Anesthesia History - metal bumper: Anesthesia History - metal bumper Hx Hospitalization Any Problems With Anesthesia No 08/09/24 06:11 Cholinesterase deficiency No 08/09/24 06:11 You/Your Family Experience No 08/09/24 06:11 fever (hyperthermia) with Relationship Recent Exposure to Contagious Yes: covid 08/09/24 06:11 Disease Does patient have nerve No 08/09/24 06:11 stimulator Patient instructed to have No 08/09/24 06:11 device shut off --Does patient have Pacemaker or ICD? When Was Last Pacemaker Check QUESTION #4 FULL TEXT: You/Your Family Experience fever (hyperthermia) with Anesthesia Last Oral Intake Last Oral intake: Last Oral Intake NPO since Meds taken in AM with sips of water? Meds patient instructed to take am of surgery PONV PONV - metal bumper: PONV - metal bumper Female HX of Motion Sickness HX of N/V After Surgery Non-Smoker Duration of Surgery greater than 60 minutes Number of Risk Factors PONV Score Height & Weight Height & Weight: Anesthesia: Height & Weight Height 5 ft 7 in 08/07/24 18:04 Weight: 54.7 kg 08/07/24 18:04 Body Mass Index (BMI) 18.8 08/07/24 10:45 Respiratory Assessment Respiratory Assessment - metal bumper: Respiratory Tract Infection Hx - metal bumper Hx Respiratory Tract Infection Yes: covid 08/09/24 06:11 STOP Sleep Apnea STOP Sleep Apnea - metal bumper: STOP Sleep Apnea - metal bumper Hx Hypertension No 08/08/24 10:29 Hx Sleep Apnea No 08/07/24 10:48 CPAP BIPAP Do you snore loudly (louder No 08/07/24 10:48 than talking or can be heard Do you often feel tired/ Yes 08/07/24 10:48 fatigued/ sleepy during daytime? Has anyone observed you stop No 08/07/24 10:48 breathing during sleep? STOP Results Negative 08/07/24 10:48 QUESTION #5 FULL TEXT : Do you snore loudly (louder than talking or can be heard through closed doors)? 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 Specify any problems Hx of Preganancy in last 3 N/A 08/07/24 10:48 Months Nurse Filling Out Transfusion FSTEINER 08/07/24 10:48 & Questions: Date: 08/07/24 08/07/24 10:48 Time: 10:49 08/07/24 10:48 Patient unable to answer at this time (ie. confused, unrespo /Reproduction History /Reproductive History - metal bumper: /Reproductive Hx- metal bumper Hx Now na 08/09/24 06:11 Gestational Age (in weeks): EDC: Hx Hx Para Hx Section SAB Active Medications Active Medications: Current Medications Generic Name Dose Route Start Last Admin Trade Name Freq PRN Reason Stop Dose Admin Acetaminophen 650 mg 08/07/24 11:11 08/08/24 17:56 Acetaminophen 325 Mg Tablet PO 650 mg Q6H PRN PRN Administration Pain 1-10 Or Fever >100.7 Albuterol/Ipratropium 3 ml 08/07/24 11:11 08/09/24 10:22 Ipratropium/Albuterol Sulfate 3 Ml Ampul.Neb INHALATION 3 ml Q4H.RT DEAN Administration Dexamethasone Sodium Phosphate 6 mg 08/07/24 12:00 08/09/24 08:45 Dexamethasone 10 Mg/Ml Vial IV 6 mg DAILY DEAN Administration Enoxaparin Sodium 40 mg 08/07/24 12:00 08/08/24 09:46 Enoxaparin 40 Mg/0.4 Ml Syringe SC 40 mg DAILY DEAN Administration Sodium Chloride 100 mls @ 15 mls/hr 08/07/24 10:47 08/08/24 18:09 IV 0 mls/hr .Q6H40M PRN Infusion Saline Flush Sodium Chloride 100 mls @ 15 mls/hr 08/07/24 10:47 IV .Q6H40M PRN Additional IVPB Infusion Azithromycin 500 mg/ Sodium 255 mls @ 250 mls/hr 08/07/24 11:30 08/09/24 08:45 Chloride IV 08/12/24 11:02 0 mls/hr Q24 DEAN Infusion Ceftriaxone Sodium 1 gm in 50 mls @ 100 mls/hr 08/08/24 15:40 08/09/24 08:45 Rocephin IV 100 mls/hr Q24 DEAN Administration Nitroglycerin 0.4 mg 08/07/24 11:11 Nitroglycerin (Inpatient Use) 0.4 Mg Tab.Subl SL Q5M PRN CARDIAC/CHEST PAIN Pantoprazole Sodium 40 mg 08/07/24 12:00 08/08/24 09:46 Pantoprazole Sodium 40 Mg Tablet PO 40 mg DAILY DEAN Administration Prochlorperazine Edisylate 5 mg 08/07/24 11:11 Prochlorperazine 10 Mg/2 Ml Vial IV Q4H PRN PRN Breakthrough nausea/vomiting Senna/Docusate Sodium 2 tablet 08/07/24 11:11 Senna/Docusate Sodium 1 Tablet PO BID PRN PRN Constipation Sodium Chloride 10 - 40 ml 08/07/24 10:47 08/09/24 08:44 0.9% Saline Lock 10 Ml Syringe IV 10 ml UD PRN Administration SALINE FLUSH PFSH Medical History Former smoker COPD (chronic obstructive pulmonary disease) Home Medications ?Medication ?Instructions ?Recorded ?Last Taken ?Type albuterol sulfate 90 mcg/actuation 2 puff inhalation Q 4H PRN dyspnea 08/07/24 Unknown History aerosol inhaler Allergy/AdvReac Type Severity Reaction Status Date / Time No Known Allergies Allergy Verified 08/07/24 08:05 Social History Smoking Status: Current every day smoker tobacco type: cigarettes Review of Systems (Anesthesia) ROS Narrative System reviewed and no additional complaints, except as documented.
--- NOTE | 2024-08-09 11:31 | PCM.PN.INT ---
Assessment & Plan Assessment/Plan (1) COVID-19: (2) Acute hypoxic respiratory failure: PLAN: Plan RECOMMENDATIONS: 1. Continue antimicrobials to complete treatment course. 2. Continue Decadron as ordered. 3. Given findings noted on CT imaging of the chest, will perform bronchoscopy with BAL today. 4. Perform walking oximetry study prior to consideration for discharge home. 5. Outpatient follow-up after discharge is warranted. IMPRESSIONS: 1. Shortness of breath with acute on chronic cough Most likely related to presenting COVID-19 infection. However, given the findings noted on CT imaging of the chest including bronchiectasis and patchy infiltrates, with underlying concern for possible MAC, we will proceed with bronchoscopy with BAL. Otherwise, the patient will be continued on antimicrobials, with plans for outpatient pulmonary follow-up. The patient will be maintained on scheduled bronchodilators. 2. Chronic tobacco dependency with concern for underlying COPD Complicates care, management, recovery and prognosis. Continue supportive measures as noted above. Recommend outpatient pulmonary follow-up after discharge. This note was generated with [employer] dictation software. It may contain incorrect words, spelling, and punctuation that were not noted in checking the note before signing. Subjective Subjective The patient was seen and examined at the bedside this morning. Events from the last 24 hours have been reviewed. The patient is currently afebrile, hemodynamically stable and maintaining appropriate oxygen saturations on room air. White blood cell count is elevated at 19,000. The patient remains on antimicrobials and Decadron. There are tentative plans to proceed with bronchoscopy with BAL later this morning. Risks and benefits were reviewed with the patient. He was in agreement to proceed. Objective Data Objective Data The patient's most recent lab work, culture data and imaging studies have all been personally reviewed. Vital Signs: Vital Signs Temp Pulse Resp BP Pulse Ox O2 Del Method O2 Flow Rate 98.0 F 96 18 127/77 H 98 Room Air 2.5 08/09/24 11:06 08/09/24 11:06 08/09/24 11:06 08/09/24 11:06 08/09/24 11:06 08/09/24 10:23 08/09/24 11:06 FiO2 95 08/09/24 11:06 Oxygen Flow Rate (L/min) 2.5 Oxygen Delivery Method Room Air Weight: 120 lb 9.486 oz Body Mass Index (BMI) 18.8 Intake & Output: Intake and Output for Last 24 Hours 08/07/24 08/09/24 08/09/24 23:59 00:59 23:59 Intake Total 1303.3 / 1303.3 321.25 / 321.25 54.17 / 54.17 Output Total 350 / 350 Balance 953.3 / 953.3 321.25 / 321.25 54.17 / 54.17 Lab / Micro Data Attestation: I reviewed the patient's lab results. 08/09/24 05:44 08/09/24 05:44 Labs: Laboratory Results - last 24 hr 08/09/24 05:44: WBC 19.6 H, RBC 3.64 L, Hgb 10.3 L, Hct 30.8 L, MCV 84.6, MCH 28.3, MCHC 33.4, RDW Std Deviation 46.2 H, RDW Coeff of Yogesh 15.0 H, Plt Count 437, MPV 10.0, Immature Gran % (Auto) 4.100 H, Neut % (Auto) 63.6, Lymph % (Auto) 19.7, [place] % (Auto) 11.8 H, Eos % (Auto) 0.1, Baso % (Auto) 0.7, Absolute Neuts (auto) 12.5 H, Absolute Lymphs (auto) 3.87, Nucleated RBC % 0.2, Diff Path Review May foll, Reactive Lymphocytes 1+, Platelet Estimate SLT INC, Plt Morphology Comment CLUMPED, Polychromasia 1+, Anisocytosis 1+, Ovalocytes 1+, Sodium 141, Potassium 3.0 L, Chloride 105, Carbon Dioxide 20.9 L, Anion Gap 15, BUN 12, Creatinine 0.72, Estim Creat Clear Calc 87.58, Est GFR (MDRD) Non-Af 106, BUN/Creatinine Ratio 15.9, Glucose 110 H, Calcium 8.3 Micro: Microbiology 08/07/24 12:25 Sputum, Expectorated/Coughed Gram Stain - Final 08/07/24 13:10 Urine, Random Urine Culture - Preliminary Culture exhibits no growth. 08/07/24 15:03 Nasal Secretion MRSA (PCR) - Final 08/07/24 13:10 Urine, Clean Catch Legionella Antigen - Final 08/07/24 13:10 Urine, Clean Catch Streptococcus pneumoniae Antigen (M - Final 08/07/24 08:17 Mucosa - Nose SARS-CoV-2, Influenza & RSV (PCR) - Final SARS-CoV-2 (COVID 19 PCR) Physical Exam Const alert and no apparent distress General Appearance: cooperative HEENT normocephalic and head/scalp atraumatic Eyes PERRL, EOMs intact bilaterally and conjunctivae normal Neck supple General: trachea midline Chest inspection of chest normal Resp normal respiratory effort Auscultation: diminished lung sounds Cardio regular rate and regular rhythm GI normal to inspection, nondistended, normoactive bowel sounds Extremity no clubbing, cyanosis or edema Skin no rashes or lesions noted Neuro CN's II-XII intact bilaterally, moves all extremities and no focal motor deficits Psych cooperative and affect normal Charges/Coding Visit Charges Inpatient E&M: 56833 Subs Hosp L2
[2024-08-09] MEDS: Lidocaine 2% (5ml sdv) 5 ML VIAL.MPF (12:47)
[2024-08-09] MEDS: Lidocaine Jelly 2% 20 ML Syringe (URO-JET) 1 APPLIC (12:48)
--- NOTE | 2024-08-09 13:06 | FLU_PTH ---
PATIENT: SHANTE MONTANEZ LOC: MS3 U#:[id number] AGE/SX: 58/M ROOM: [facility] [place] RE08/07/[address]: Dr. Rio Lowe DO : 1965 BED: 1 DIS: 08/11/2024 SPEC #: [id number] RECD: 08/09/24 14:14 STATUS: ADAN REQ #: [id number] SAQIB: 08/09/24 13:[address]: Dillon Sandoval DEPT: CYTOLOGY RECD BY: Arnulfo Wilder ENTERED: 08/09/24 14:15 SP TYPE: Fluid OTHR DR: MD Dr. Sung Ramon MD Dr. Bruce Arthur, MD Dr. David P Myers, MD Dr. Edward Matheis, MD Dr. Gautam Baskaran, MD Dr. Yordanos Habtegebriel, MD Dr. Hemant Dand, MD Dr. Jose Ochoa, MD Dr. Justin Wong, MD Dr. Kimber Foust, MD Dr. Lamia Aljundi, MD Dr. Marisa Magana, MD Dr. Mark Tereletsky, DO Dr. Prakash Chand, MD Dr. Pritam Ghosh, MD Dr. Pavan Irukulla, MD Dr. Saad Farooqi, MD Dr. Sukhdeep Dhesi, DO Dr. Sujoy Gill, MD Dr. Soleyah Groves, MD Dr. Timothy Fernstrom, DO Dr. Vikram Anand, MD Dr. William Haden, MD Jessica Franklin, [facility], [employer]-C Tissues: Bronchus of right middle lobe Procedures: PC (control) Special Stain Group II Special Stain Group I Surgery Specimen Level IV AFB Stain (control) GMS Stain (control) Cytospin Fluid HEADER OPERATION: Bronchoscopy with BAL PRE-OP DIAGNOSIS: Abnormal CT scan TISSUE SUBMITTED: Bronchial fluid for cytology DIAGNOSIS CYTOLOGY Right middle lobe bronchoalveolar lavage, cytology and cell block:Abundant acute inflammation (see comment) COMMENT Special stains are performed with appropriate controls and the following results:GMS with fungal control-negativeGMS with pneumocystis ofezyuw-tgsprpnsJhtz-ctnf bacilli stain with tuberculosis control-negativeTabatha Stauffer MD, 08-12-2024 CYTOLOGY STUDY Slides are reviewed. CYTOLOGY GROSS Received is 15 ml of cloudy-colorless mucoidy fluid labeled with the patient's name and and designated per the requisition as Right middle lobe fluid. Submitted for cytology preparation including cell block. Mr 08/09/2024 CPT: 75903,46716,38277m2 , TC:4
--- NOTE | 2024-08-09 13:06 | OP.BRONCH_ITS ---
Patient Name: Sagar Valiente Procedure Date: 08/09/2024 12:33 PM Date of : 1965 Age: 58 Procedure: Bronchoscopy Indications: Abnormal CT scan of chest Providers: Dillon Sandoval MD Medicines: See the Anesthesia note for documentation of the administered medications Complications: No immediate complications Procedure: Pre-Anesthesia Assessment: - A History and Physical has been performed. Patient meds and allergies have been reviewed. The risks and benefits of the procedure and the sedation options and risks were discussed with the patient. All questions were answered and informed consent was obtained. Patient identification and proposed procedure were verified prior to the procedure by the physician and the nurse in the procedure room. Mental Status Examination: alert and oriented. Airway Examination: normal oropharyngeal airway. Respiratory Examination: rhonchi. CV Examination: normal. ASA Grade Assessment: II - A patient with mild systemic disease. After reviewing the risks and benefits, the patient was deemed in satisfactory condition to undergo the procedure. The anesthesia plan was to use monitored anesthesia care (MAC). Immediately prior to administration of medications, the patient was re-assessed for adequacy to receive sedatives. The heart rate, respiratory rate, oxygen saturations, blood pressure, adequacy of pulmonary ventilation, and response to care were monitored throughout the procedure. The physical status of the patient was re-assessed after the procedure. After I obtained informed consent, the scope was passed under direct vision. Throughout the procedure, the patient's blood pressure, pulse, and oxygen saturations were monitored continuously. The bronchoscope was introduced through the mouth and advanced to the tracheobronchial tree. The procedure was accomplished without difficulty. The patient tolerated the procedure well. Findings: Bilateral Lung Abnormalities: Notable, mucopurulent secretions were found throughout the tracheobronchial tree. They were not obstructing the airway. The bronchoscope was advanced until wedged at the desired location for bronchoalveolar lavage. BAL was performed in the right middle lobe of the lung and sent for cell count, bacterial culture, viral smears & culture, and fungal & AFB analysis and cytology. 60 mL of fluid were instilled. 20 mL were returned. The return was cloudy. Mucous plugs were present in the return fluid. Impression: - Abnormal CT scan of chest - Notable, mucopurulent secretions were found throughout the tracheobronchial tree. - Bronchoalveolar lavage was performed. Recommendation: - Await BAL results. Procedure Code(s): --- Professional --- 36950, Bronchoscopy, rigid or flexible, including fluoroscopic guidance, when performed; with bronchial alveolar lavage Diagnosis Code(s): --- Professional --- R93.89, Abnormal findings on diagnostic imaging of other specified body structures R09.89, Other specified symptoms and signs involving the circulatory and respiratory systems CPT copyright 2021 [employer]. All rights reserved. The codes documented in this report are preliminary and upon vice president consulting services review may be revised to meet current compliance requirements. DO Dillon Sanders MD 08/09/2024 1:06:10 PM This report has been signed electronically. Number of Addenda: 0 Note Initiated On: 08/09/2024 12:33 PM
--- NOTE | 2024-08-09 13:22 | PCM.POST.ANE ---
Anesthesia: Postop Eval I Current Vital Signs Temperature: 97 F Pulse Rate: 100 Blood Pressure: 124/76 Respiratory Rate: 20 Pulse Ox: 98 Oxygen Delivery Method: Room Air Assessment Airway patent: Yes Spontaneous unlabored respirations: Yes Mental status: Awake nausea: No Vomiting: No Anesthesia Complication: No Fluid Hydration Crystalloid volume administer (ml): 10 Total IV fluid infused: 10 Progress Note Anesthesia document: Postop Eval 1 completed: Yes
--- NOTE | 2024-08-09 13:25 | PCM.POSTANE2 ---
Anesthesia Postop Eval I Sum Postop Eval Completion status Anesthesia document: Postop Eval 1 completed: Yes Anesthesia Postop Eval I Summary Anesthesia Postop Eval I Summary: Anesthesia Postop Eval I: Assessment Summary Airway patent Yes 08/09/24 13:23 Spontaneous unlabored Yes 08/09/24 13:23 respirations Mental status Awake 08/09/24 13:23 nausea No 08/09/24 13:23 Vomiting No 08/09/24 13:23 Anesthesia Postop Eval I: Fluid Summary Crystalloid volume administer 10 08/09/24 13:23 (ml) Colloids volume administered ( ml) Blood Product volume administered (ml) Total IV fluid infused 10 08/09/24 13:23 Anesthesia Postop Eval I: Summary Notes Anesthesia Complication No 08/09/24 13:23 Anesthesia Complication Comment: Post-operative progress note Anesthesia: Postop Eval II Evaluation Mental status: Awake Pain Level: 0 nausea: No Vomiting: No
[2024-08-09 13:29] LABS: Cytology, Body Fluid / CSF SEE PATHOLOGY REPORT; Pathologist Comment/Body Fluid May follow
--- NOTE | 2024-08-09 13:32 | CASEMGMT ---
RN CM to pt room for CM assessment, pt is off the floor at this time.
[2024-08-09 14:52] LABS: Appearance/Body Fluid CLOUDY; Color/Body Fluid LT YEL; Source- Body Fluid BRONCHIAL LAVAGE
--- NOTE | 2024-08-09 15:08 | CASEMGMT ---
RN CM STRUCTURAL WELDER FAIZAN?spoke with patient for initial transition planning/care coordination assessment. RN FAIZAN?introduced self and role at [facility]. Pt voices understanding and consents to assessment?at this time. Pt is A/O at this time and answers all questions appropriately. Care providers, pharmacy, and demographics verified/updated at this time. Pt states he does not have a phone. Strata:?1 PCP: Kelli Morejon @ [facility] Specialists: none Preferred Pharmacy: [facility] @ discharge. Otherwise, goes to [facility] Insurance: [facility] Prescription Benefit: yes LNOK: Pt has one biological son, Sagar Nieves (Pt thinks this is the correct spelling, but he is not sure). Son lives in [place], [place]. Pt does not know his phone #. Pt states he does not have anyone he can list as an emergency contact at this time. Living Arrangements: Pt states he has been living @ [facility] for about 1 1/2 months. He is indep w/ADL's. The jail provides meals. He states he is supposed to be getting a food stamp card, but it has not arrived yet. Transportation:?Pt states he walks everywhere. DME: Denies using any DME. Pt does not have home O2. Discussed possible need of home O2 @ dc. Pt is agreeable to this and states he would have access to electricity @ the jail to plug the concentrator in, if he does need O2. HHC/SNF: No hx of either. Pt has been up ad jennifer in room. Pt wishes to return back to the jail. He is aware SW will be in to talk with him to provide resources and he voices appreciation. CM?to follow for home oxygen needs and any further discharge planning/needs. Pt voices no further concerns/needs at this time. Advised pt to ask for CM?if any further questions/concerns/needs arise. Voices understanding. PLAN: DC back to jail. CM to follow for any O2 needs @ dc. Eros ISLAS RN, CM
[2024-08-09 15:17] LABS: Red Cell Count/Body Fluid 30 /mm3; White Blood Count/Body Fluid 2835 /mm3
[2024-08-09 15:22] LABS: Monocytes 2 %; Neutrophil (Segs) 97 %; Other Cell Type/BF 1 %
[2024-08-09 15:23] LABS: Body Fluid QC Type(s) BF1Q
[2024-08-09] MEDS: Potassium Chloride Oral Tablet 20 MEQ 40 MEQ PO (15:51)
[2024-08-09] MEDS: Acetaminophen 325 MG Tablet 650 MG PO (15:51)
--- NOTE | 2024-08-09 19:24 | PCM.PN.HOSP ---
Reason for Visit Reason for Visit: Diagnoses Acute respiratory failure with hypoxia (08/07/24) COVID-19 (08/07/24) Subjective Subjective Patient was seen and examined today, he is currently on 3 L of oxygen via nasal cannula. Patient underwent a bronchoscopy today with BAL. At the time my examination, patient does not complain of any shortness of breath. Objective Data Objective Data Vital Signs: Vital Signs Temp Pulse Resp BP Pulse Ox O2 Del Method O2 Flow Rate 97.4 F L 83 16 111/75 93 Nasal Cannula 3 08/09/24 14:18 08/09/24 14:18 08/09/24 14:18 08/09/24 14:18 08/09/24 14:18 08/09/24 16:27 08/09/24 16:27 FiO2 95 08/09/24 11:06 Oxygen Flow Rate (L/min) 3 Oxygen Delivery Method Nasal Cannula Weight: 54.7 kg Body Mass Index (BMI) 18.8 Intake & Output: Intake and Output for Last 24 Hours 08/07/24 08/09/24 08/09/24 23:59 00:59 23:59 Intake Total 1303.3 / 1303.3 321.25 / 321.25 1505.00 / 1505.00 Output Total 350 / 350 Balance 953.3 / 953.3 321.25 / 321.25 1505.00 / 1505.00 Lab / Micro Data 08/09/24 05:44 08/10/24 06:56 Labs: Laboratory Results - last 24 hr 08/09/24 05:44: WBC 19.6 H, RBC 3.64 L, Hgb 10.3 L, Hct 30.8 L, MCV 84.6, MCH 28.3, MCHC 33.4, RDW Std Deviation 46.2 H, RDW Coeff of Yogesh 15.0 H, Plt Count 437, MPV 10.0, Immature Gran % (Auto) 4.100 H, Neut % (Auto) 63.6, Lymph % (Auto) 19.7, [place] % (Auto) 11.8 H, Eos % (Auto) 0.1, Baso % (Auto) 0.7, Absolute Neuts (auto) 12.5 H, Absolute Lymphs (auto) 3.87, Nucleated RBC % 0.2, Diff Path Review May foll, Reactive Lymphocytes 1+, Platelet Estimate SLT INC, Plt Morphology Comment CLUMPED, Polychromasia 1+, Anisocytosis 1+, Ovalocytes 1+, Sodium 141, Potassium 3.0 L, Chloride 105, Carbon Dioxide 20.9 L, Anion Gap 15, BUN 12, Creatinine 0.72, Estim Creat Clear Calc 87.58, Est GFR (MDRD) Non-Af 106, BUN/Creatinine Ratio 15.9, Glucose 110 H, Calcium 8.3 08/09/24 : Fluid Source BRONCHIAL LAVAGE, Fluid Color LT YEL, Fluid Appearance CLOUDY, Fluid WBC 2835, Fluid RBC 30, Fluid Tot Cell Count TNP, Fluid Neutrophils 97, Fluid Monocytes 2, Fluid Other Cells 1, Fl Pathologist Comment May follow, Fluid Comment 2 Not Reportable Micro: Microbiology 08/07/24 09:00 Blood Culture (Wb) - No Site/Description Given Blood Culture - Preliminary No growth in 48 hours. 08/07/24 08:20 Blood Culture (Wb) - Anticubital Left Blood Culture - Preliminary No growth in 48 hours. 08/07/24 12:25 Sputum, Expectorated/Coughed Gram Stain - Final 08/07/24 12:25 Sputum, Expectorated/Coughed Respiratory Culture - Final Haemophilus influenzae 08/07/24 13:10 Urine, Random Urine Culture - Preliminary Culture exhibits no growth. 08/07/24 15:03 Nasal Secretion MRSA (PCR) - Final 08/07/24 13:10 Urine, Clean Catch Legionella Antigen - Final 08/07/24 13:10 Urine, Clean Catch Streptococcus pneumoniae Antigen (M - Final 08/07/24 08:17 Mucosa - Nose SARS-CoV-2, Influenza & RSV (PCR) - Final SARS-CoV-2 (COVID 19 PCR) Physical Exam Const alert, oriented x3 and no apparent distress General Appearance: cooperative and well developed Orientation / Consciousness: awake, oriented to person, oriented to place and oriented to time HEENT normocephalic, head/scalp atraumatic and moist oral mucous membranes Eyes PERRL, EOMs intact bilaterally and conjunctivae normal Neck supple, no JVD, thyroid normal and no carotid bruits General: trachea midline Resp normal respiratory effort and clear to auscultation bilaterally Auscultation: Negative for rales, rhonchi or wheezes Cardio regular rate, regular rhythm, no murmurs, no rub and no gallops GI normal to inspection, nondistended, normoactive bowel sounds, soft to palpation, non-tender and non-distended Extremity no clubbing, cyanosis or edema Skin no rashes or lesions noted General Skin Exam: no breakdown Neuro oriented x3, CN's II-XII intact bilaterally, no focal motor deficits and no sensory deficits noted Sensorium / Orientation: awake and alert Speech: speech normal Psych affect normal Assessment & Plan Assessment/Plan (1) COVID-19: PLAN: Plan 1. COVID-19 infection with an overlie of haemophilus influenza pneumonia-patient will continue on Zithromax, I will evaluate him tomorrow for possible discharge, patient still on oxygen at this time #2 hypoxia secondary to #1-patient's oxygen will be weaned tomorrow if possible #3 possible chronic obstructive pulmonary disease-patient uses an inhaler on a chronic basis Total clinical time spent by myself addressing the patient's medical issues, reviewing all of his data, and collaborating with patient's care team: 35-minute Charges/Coding Visit Charges Inpatient E&M: 02678 Subs Hosp L2
[2024-08-10] VITALS (9 sets, daily range): BP systolic 103–132; BP diastolic 61–81; PULSE 71–94; RESP 16–18; TEMP 36.5–36.8; O2SAT 92–98
--- NOTE | 2024-08-10 06:45 | PCM.PN.INT ---
Assessment & Plan Assessment/Plan (1) COVID-19: (2) Acute hypoxic respiratory failure: PLAN: Plan RECOMMENDATIONS: 1. Continue antimicrobials to complete treatment course. 2. Continue Decadron as ordered. 3. Await results of BAL from bronchoscopy. 4. Perform walking oximetry study prior to consideration for discharge home. 5. Outpatient follow-up after discharge is warranted. 6. Will sign off from a pulmonary perspective. Please call with any additional questions. IMPRESSIONS: 1. Shortness of breath with acute on chronic cough Most likely related to presenting COVID-19 infection with superimposed haemophilus pneumonia. However, given the findings noted on CT imaging of the chest including bronchiectasis and patchy infiltrates, with underlying concern for possible MAC, bronchoscopy with BAL was performed on August 09. Cultures can be followed up on an outpatient basis in the pulmonary medicine office. Otherwise, the patient will be continued on antimicrobials, with plans for outpatient pulmonary follow-up. The patient will be maintained on scheduled bronchodilators. 2. Chronic tobacco dependency with concern for underlying COPD Complicates care, management, recovery and prognosis. Continue supportive measures as noted above. Recommend outpatient pulmonary follow-up after discharge. This note was generated with [employer] dictation software. It may contain incorrect words, spelling, and punctuation that were not noted in checking the note before signing. Subjective Subjective The patient was seen and examined at the bedside this morning. Events from the last 24 hours have been reviewed. The patient is currently afebrile, hemodynamically stable and maintaining appropriate oxygen saturations on room air. The patient tolerated bronchoscopy with BAL yesterday. He is documented to be overall net +2.8 L for the hospitalization. Objective Data Objective Data The patient's most recent lab work, culture data and imaging studies have all been personally reviewed. Sputum culture is currently demonstrating growth of haemophilus influenza. Vital Signs: Vital Signs Temp Pulse Resp BP Pulse Ox O2 Del Method O2 Flow Rate 97.9 F 71 17 132/81 H 94 Room Air 3 08/10/24 02:12 08/10/24 02:12 08/10/24 02:12 08/10/24 02:12 08/10/24 02:12 08/10/24 02:14 08/09/24 16:27 FiO2 95 08/09/24 11:06 Oxygen Flow Rate (L/min) 3 Oxygen Delivery Method Room Air Weight: 120 lb 9.486 oz Body Mass Index (BMI) 18.8 Intake & Output: Intake and Output for Last 24 Hours 08/09/24 08/09/24 08/10/24 00:59 23:59 23:59 Intake Total 321.25 / 321.25 1505.00 / 1505.00 Balance 321.25 / 321.25 1505.00 / 1505.00 Lab / Micro Data Attestation: I reviewed the patient's lab results. 08/09/24 05:44 08/10/24 06:56 Labs: Laboratory Results - last 24 hr 08/09/24 05:44: Diff Path Review May foll, Reactive Lymphocytes 1+, Platelet Estimate SLT INC, Plt Morphology Comment CLUMPED, Polychromasia 1+, Anisocytosis 1+, Ovalocytes 1+, Sodium 141, Potassium 3.0 L, Chloride 105, Carbon Dioxide 20.9 L, Anion Gap 15, BUN 12, Creatinine 0.72, Estim Creat Clear Calc 87.58, Est GFR (MDRD) Non-Af 106, BUN/Creatinine Ratio 15.9, Glucose 110 H, Calcium 8.3 08/09/24 : Fluid Source BRONCHIAL LAVAGE, Fluid Color LT YEL, Fluid Appearance CLOUDY, Fluid WBC 2835, Fluid RBC 30, Fluid Tot Cell Count TNP, Fluid Neutrophils 97, Fluid Monocytes 2, Fluid Other Cells 1, Fl Pathologist Comment May follow, Fluid Comment 2 Not Reportable Micro: Microbiology 08/07/24 09:00 Blood Culture (Wb) - No Site/Description Given Blood Culture - Preliminary No growth in 48 hours. 08/07/24 08:20 Blood Culture (Wb) - Anticubital Left Blood Culture - Preliminary No growth in 48 hours. 08/07/24 12:25 Sputum, Expectorated/Coughed Gram Stain - Final 08/07/24 12:25 Sputum, Expectorated/Coughed Respiratory Culture - Final Haemophilus influenzae 08/07/24 13:10 Urine, Random Urine Culture - Preliminary Culture exhibits no growth. 08/07/24 15:03 Nasal Secretion MRSA (PCR) - Final 08/07/24 13:10 Urine, Clean Catch Legionella Antigen - Final 08/07/24 13:10 Urine, Clean Catch Streptococcus pneumoniae Antigen (M - Final 08/07/24 08:17 Mucosa - Nose SARS-CoV-2, Influenza & RSV (PCR) - Final SARS-CoV-2 (COVID 19 PCR) Physical Exam Const alert and no apparent distress General Appearance: cooperative HEENT normocephalic and head/scalp atraumatic Eyes PERRL, EOMs intact bilaterally and conjunctivae normal Neck supple General: trachea midline Chest inspection of chest normal Resp normal respiratory effort Auscultation: diminished lung sounds Cardio regular rate and regular rhythm GI normal to inspection, nondistended, normoactive bowel sounds Extremity no clubbing, cyanosis or edema Skin no rashes or lesions noted Neuro CN's II-XII intact bilaterally, moves all extremities and no focal motor deficits Psych cooperative and affect normal Charges/Coding Visit Charges Inpatient E&M: 41170 Subs Hosp L2
[2024-08-10] MEDS: Ipratropium/Albuterol Sulfate 3 ML AMPUL.NEB INHALATION ×3 (07:36→19:46)
[2024-08-10 08:44] LABS: Anion Gap 12 (5-15); BUN 9 mg/dL (4-19); BUN/Creat Ratio 12.5 RATIO (10-20); Calcium,Total 7.9 mg/dL (7.6-11.0); Carbon Dioxide 22.7 mmol/L (21.0-32.0); Chloride 105 mmol/L (98-108); Creatinine, Serum 0.74 mg/dL (0.70-1.20); EST Glomerular Filtration Rate 106 (>60); Estimated Creatinine Clearance 85.21 ml/min (50-250); Glucose 91 mg/dL (70-99); Potassium 3.2 mmol/L (3.3-5.1); Sodium Level 139 mmol/L (133-145)
[2024-08-10] MEDS: dexAMETHasone 10 MG/ML Vial 6 MG IV (09:23)
[2024-08-10] MEDS: Pantoprazole Sodium 40 MG Tablet PO (09:40)
[2024-08-10] MEDS: 0.9% Normal Saline (100mL Bag) 100 ML 15 ML IV (09:41)
[2024-08-10] MEDS: Azithromycin 500 MG in 0.9% Normal Saline (250mL Bag) 250 ML 250 MG IV (09:41)
[2024-08-10] MEDS: Ceftriaxone 1 GM/50 ML BAG IV (11:00)
[2024-08-10] MEDS: Acetaminophen 325 MG Tablet 650 MG PO (11:56)
[2024-08-10] MEDS: 0.9% Saline Lock 10 ML Syringe IV (11:57)
--- NOTE | 2024-08-10 14:48 | DCINST_ITS ---
Discharge Instructions Diet Discharge Diet: No restrictions DC O2, CPAP, BIPAP needs Home O2 Discharge instructions: No Dressing / Incision Discharge Activity: Return to Normal Activity Weight Bearing Status: Full weight bearing Follow Up Care Test Results: Test results from this visit will be discussed in further detail at your follow- up appointment, if applicable. Discharge Plan Admission Admit Date/Time: 08/07/24 09:32 Primary Reason for Your Visit: COVID 19 with superimposed Haemophilus pneumonia Attending Provider: Rio Lowe Primary Care Provider: Kelli Morejon Consulting Providers: Farooq Sandoval Discharge Orders/Prescriptions Prescriptions: New azithromycin [Zithromax] 250 mg tablet 500 mg PO DAILY Qty: 6 0RF Rx Instructions: start on 08/11/24 Continued albuterol sulfate 90 mcg/actuation HFA aerosol inhaler 2 puff INHALATION Q4H PRN (Reason: dyspnea) Patient Comments: pt needs refilled Referrals / Follow Up: Dillon Sandoval DO [Med Staff - Active Staff] - Within 2 Weeks (call for appointment) Kelli Morejon, SLEEP TECHNICIAN-C [Primary Care Provider] - In 1 Week Disposition Disposition (needs filled in before D/C Order can be placed): Home, Self Care
--- NOTE | 2024-08-10 14:51 | CASEMGMT ---
Social Work- SW met with pt to conduct SDOH assessment. SW introduced self and role. Pt agreeable to meeting. Pt reports that he has been unhoused for 1.5 months. Prior to that time, pt had a trailer in [place] that was paid for. Pt was unable to pay lot rent and lost the trailer. Pt has not been employed since 2016. Pt reports that he has not applied for disability. Pt reports Shira at [facility] has been working to connect pt with [facility], as well as housing. Pt reports zero income. Pt plans to return to retirement at discharge. Pt asked SW to call Shira at [facility] to update on pt status and location. Pt reports that he walks places and has no concerns regarding safety. Pt has a food card that is being delivered to [facility]. Pt provided with printable for pantry boxes, food resources, [facility], housing supports, shelters, people to people, [facility] transport, [facility], [facility] transport, [facility]. Pt reports no other needs at this time. EVAN Gasca
--- NOTE | 2024-08-10 14:57 | PCM.DC.SUM ---
Providers Date of Admission: 08/07/24 Date of Discharge: 08/11/24 Primary Care Physician: Kelli Morejon [facility], TECHNICIAN AUTOMATED EQUIPMENT-C Consultations 08/07/24 12:20 Consult: Optical Laboratory Mechanic / Pulmonary Medicine Routine Consulting Provider: Intensivists/Pulmonary Med Reason for Consult: Shortness of breath, cough, subjective fever for 1 month EMERGENT Consult: No MD Notified: Yes Date Notified: 08/07/24 Time Notified: 12:21 Method of Notification: Verbal Reason For Visit: COVID 19 INFECTION, COPD EXA Diagnosis Discharge Diagnosis (1) COVID-19: Status: Acute Code(s): U07.1 - COVID-19 (2) Acute hypoxic respiratory failure: Status: Acute Code(s): J96.01 - Acute respiratory failure with hypoxia Plan 1. COVID-19 infection with an overlie of haemophilus influenza pneumonia-patient will continue on Zithromax, I will evaluate him tomorrow for possible discharge, patient still on oxygen at this time #2 hypoxia secondary to #1-patient's oxygen will be weaned tomorrow if possible #3 possible chronic obstructive pulmonary disease-patient uses an inhaler on a chronic basis #4 homelessness Medications at Discharge Home Medications albuterol sulfate 90 mcg/actuation aerosol inhaler 2 puff inhalation Q4H PRN dyspnea 08/07/24 azithromycin 250 mg tablet (Zithromax) 500 mg (2 x 250 mg) PO DAILY #6 tabs 08/10/24 dexamethasone 2 mg tablet 6 mg (3 x 2 mg) PO DAILY #12 tabs 08/10/24 Hospital Course Operations None Procedures Bronchoscopy (With BAL) Summary of Care Provided Minutes Spent on Discharge: 31 Hospital Course: This 58-year-old white male was seen in the emergency room at [facility] with complaints of shortness of breath x 1 month and cough productive of yellow sputum for a month. Patient is homeless. He is also a smoker. Labs obtained showed an elevated white blood cell count of 14.4, hemoglobin is 12.9, chemistry profile was unremarkable. Chest x-ray showed emphysematous changes but no acute thoracic finding, PCR was positive for COVID-19. Patient was admitted to [place] [address] for COVID-19 infection with mild hypoxia, he required 2 L of oxygen at the time of admission, patient was placed on bronchodilators, IV dexamethasone, Zithromax and seen by pulmonary medicine. Patient's sputum culture grew out him off less influenza and patient underwent a bronchoscopy with BAL. Patient was eventually weaned off oxygen, on 08/11/2024, patient was seen and examined: On examination he appeared cachectic but was in good spirits. Vital signs as documented. Skin warm and dry and without overt rashes. Neck without JVD, neck was supple, trachea midline, thyroid was normal. Lungs clear bilaterally, normal air movement was noted. Heart exam notable for regular rhythm, normal sounds and absence of murmurs, rubs or gallops. Abdomen unremarkable and without evidence of organomegaly, masses, or abdominal aortic enlargement. Bowel sounds are present, abdomen is not distended. Extremities nonedematous, no cyanosis was noted, no clubbing was noted. Neuro: Cranial nerves II through XII are grossly intact, no focal motor deficits were noted, sensation to light touch and pinprick intact, motor exam 5/5 throughout. Psych: Patient is alert and oriented x3, he does not appear anxious or depressed, he does not appear agitated. Patient was discharged in stable condition on 08/11/2024. Weight / BMI Weight Weight: 54.7 kg Body Mass Index (BMI) 18.8 ABG / Lab / Microbiology Data 08/09/24 05:44 08/10/24 06:56 Laboratory: Laboratory Results - last 24 hr 08/10/24 06:56: Sodium 139, Potassium 3.2 L, Chloride 105, Carbon Dioxide 22.7, Anion Gap 12, BUN 9, Creatinine 0.74, Estim Creat Clear Calc 85.21, Est GFR (MDRD) Non-Af 106, BUN/Creatinine Ratio 12.5, Glucose 91, Calcium 7.9 Microbiology: Microbiology 08/07/24 09:00 Blood Culture (Wb) - No Site/Description Given Blood Culture - Final No growth in 5 days. 08/07/24 08:20 Blood Culture (Wb) - Anticubital Left Blood Culture - Final No growth in 5 days. 08/09/24 Unknown Bronchial Lavage - Right Middle Lobe Gram Stain - Final 08/09/24 Unknown Bronchial Lavage - Right Middle Lobe Respiratory Culture - Final Mixed normal respiratory jack. No Streptococcus pneumoniae, beta-hemolytic Streptococcus or Staphylococcus aureus isolated. 08/07/24 13:10 Urine, Random Urine Culture - Final Culture exhibits no growth. 08/07/24 12:25 Sputum, Expectorated/Coughed Gram Stain - Final 08/07/24 12:25 Sputum, Expectorated/Coughed Respiratory Culture - Final Haemophilus influenzae 08/07/24 15:03 Nasal Secretion MRSA (PCR) - Final 08/07/24 13:10 Urine, Clean Catch Legionella Antigen - Final 08/07/24 13:10 Urine, Clean Catch Streptococcus pneumoniae Antigen (M - Final 08/07/24 08:17 Mucosa - Nose SARS-CoV-2, Influenza & RSV (PCR) - Final SARS-CoV-2 (COVID 19 PCR) D/C Instructions Discharge Diet: No restrictions Weight Bearing Status: Full weight bearing DC O2, CPAP, BIPAP Needs PSN CPAP & BiPAP: BiPAP & CPAP Settings per PSN Fraction of Inspired Oxygen ( 95 08/09/24 11:06 FIO2) Home O2 Discharge instructions: No Meaningful Use Info Meaningful Use Meaningful Use Diagnoses (Choose all that apply): None applicable Ischemic Stroke Statin Dosing Therapy Reference: STATIN DOSE THERAPY REFERENCE: * Patients > 75 years receive moderate or high dose statin therapy. * Patients 75 years or YOUNGER should receive HIGH intensity statin dose unless contraindicated. You will be required to document reason for non-treatment if statin daily dose does not meet guidelines. HIGH DOSE STATIN THERAPY DAILY Atorvastatin > than or = to 40 mg Rosuvastatin > than or = to 20 mg Amlodipine + Atorvastatin > than or = to 2.5/40 mg Ezetimibe + Simvastatin 10/80 mg Simvastatin 80mg Discharge Plan Admission Admit Date/Time: 08/07/24 09:32 Primary Reason for Your Visit: COVID 19 with superimposed Haemophilus pneumonia Attending Provider: Rio Lowe Primary Care Provider: Kelli Morejon [facility] Consulting Providers: Farooq Sandoval Discharge Orders/Prescriptions Prescriptions: New azithromycin [Zithromax] 250 mg tablet 500 mg PO DAILY Qty: 6 0RF Rx Instructions: start on 08/11/24 dexamethasone 2 mg tablet 6 mg PO DAILY Qty: 12 0RF Rx Instructions: three daily starting 08/10/24 Continued albuterol sulfate 90 mcg/actuation HFA aerosol inhaler 2 puff INHALATION Q4H PRN (Reason: dyspnea) Patient Comments: pt needs refilled Referrals / Follow Up: Dillon Sandoval DO [Med Staff - Active Staff] - Within 2 Weeks (call for appointment) Kelli Morejon, TECHNICIAN AUTOMATED EQUIPMENT-C [Primary Care Provider] - In 1 Week Disposition Disposition (needs filled in before D/C Order can be placed): Home, Self Care Charges/Coding Visit Charges Inpatient E&M: 64499 Disch Hosp >30min
--- NOTE | 2024-08-10 14:59 | CASEMGMT ---
Pt does not qualify for home oxygen.
--- NOTE | 2024-08-10 15:19 | PHA.DC.MC.R ---
Pharmacy [facility] has performed discharge medication reconciliation and counseling for this patient. The patient's discharge medication list was reviewed for discrepancies and discrepancies were resolved. The patient was counseled on the following discharge medications and changes in medications for homegoing were reviewed. The Reason for Use, instructions for use, and potential side effects were reviewed for all new medications. The patient's questions regarding all of their medications were answered. 1. Azithromycin 500 mg PO daily x 3 days The patient was able to verbally demonstrate an understanding of their discharge medications. Medications at Discharge Home Medications albuterol sulfate 90 mcg/actuation aerosol inhaler 2 puff inhalation Q4H PRN dyspnea 08/07/24 azithromycin 250 mg tablet (Zithromax) 500 mg (2 x 250 mg) PO DAILY #6 tabs 08/10/24
--- NOTE | 2024-08-10 18:20 | NURSING ---
This RN in to speak to patient regarding discharge. Pt states he has been sleeping at [facility], but that he didn't have a way to get there tonight unless he walked. Nursing oil field pipeline supervisor aware and stated we could arrange a ride for patient via taxi. Patient stated that MD sent scripts to [facility]. Patient stated he would have a way to get those filled in the morning.
--- NOTE | 2024-08-10 20:04 | PN.HOSP_ITS ---
Reason for Visit Reason for Visit: Diagnoses Acute respiratory failure with hypoxia (08/07/24) COVID-19 (08/07/24) Subjective Subjective Patient was seen and examined today, his oxygen was able to be weaned off, transportation was not able to be arranged for the patient and so he was not discharged today. I have decided to change his IV Zithromax to oral Zithromax starting tomorrow morning Objective Data Objective Data Vital Signs: Vital Signs Temp Pulse Resp BP Pulse Ox O2 Del Method O2 Flow Rate 97.8 F 80 18 113/75 98 Room Air 3 08/10/24 15:00 08/10/24 19:46 08/10/24 19:46 08/10/24 15:00 08/10/24 19:46 08/10/24 19:46 08/09/24 16:27 FiO2 95 08/09/24 11:06 Oxygen Flow Rate (L/min) 3 Oxygen Delivery Method Room Air Weight: 54.7 kg Body Mass Index (BMI) 18.8 Intake & Output: Intake and Output for Last 24 Hours 08/09/24 08/09/24 08/10/24 00:59 23:59 23:59 Intake Total 321.25 / 321.25 1505.00 / 1505.00 344.75 / 344.75 Balance 321.25 / 321.25 1505.00 / 1505.00 344.75 / 344.75 Lab / Micro Data 08/09/24 05:44 08/10/24 06:56 Labs: Laboratory Results - last 24 hr 08/10/24 06:56: Sodium 139, Potassium 3.2 L, Chloride 105, Carbon Dioxide 22.7, Anion Gap 12, BUN 9, Creatinine 0.74, Estim Creat Clear Calc 85.21, Est GFR (MDRD) Non-Af 106, BUN/Creatinine Ratio 12.5, Glucose 91, Calcium 7.9 Micro: Microbiology 08/09/24 Unknown Bronchial Lavage - Right Middle Lobe Gram Stain - Final 08/09/24 Unknown Bronchial Lavage - Right Middle Lobe Respiratory Culture - Preliminary 08/07/24 13:10 Urine, Random Urine Culture - Final Culture exhibits no growth. 08/07/24 09:00 Blood Culture (Wb) - No Site/Description Given Blood Culture - Preliminary No growth in 48 hours. 08/07/24 08:20 Blood Culture (Wb) - Anticubital Left Blood Culture - Preliminary No growth in 48 hours. 08/07/24 12:25 Sputum, Expectorated/Coughed Gram Stain - Final 08/07/24 12:25 Sputum, Expectorated/Coughed Respiratory Culture - Final Haemophilus influenzae 08/07/24 15:03 Nasal Secretion MRSA (PCR) - Final 08/07/24 13:10 Urine, Clean Catch Legionella Antigen - Final 08/07/24 13:10 Urine, Clean Catch Streptococcus pneumoniae Antigen (M - Final 08/07/24 08:17 Mucosa - Nose SARS-CoV-2, Influenza & RSV (PCR) - Final SARS-CoV-2 (COVID 19 PCR) Social Homelessness:: Sheltered Physical Exam Narrative alert, oriented x3 and no apparent distress General Appearance: cooperative and well developed Orientation / Consciousness: awake, oriented to person, oriented to place and oriented to time HEENT normocephalic, head/scalp atraumatic and moist oral mucous membranes Eyes PERRL, EOMs intact bilaterally and conjunctivae normal Neck supple, no JVD, thyroid normal and no carotid bruits General: trachea midline Resp normal respiratory effort and clear to auscultation bilaterally Auscultation: Negative for rales, rhonchi or wheezes Cardio regular rate, regular rhythm, no murmurs, no rub and no gallops GI normal to inspection, nondistended, normoactive bowel sounds, soft to palpation, non-tender and non-distended Extremity no clubbing, cyanosis or edema Skin no rashes or lesions noted General Skin Exam: no breakdown Neuro oriented x3, CN's II-XII intact bilaterally, no focal motor deficits and no sensory deficits noted Sensorium / Orientation: awake and alert Speech: speech normal Psych affect normal Assessment & Plan Assessment/Plan (1) COVID-19: (2) Acute hypoxic respiratory failure: PLAN: Plan 1. COVID-19 infection with an overlie of haemophilus influenza pneumonia- patient will continue on Zithromax orally, hopefully transportation can be arranged for the patient tomorrow. #2 hypoxia secondary to #1-patient was weaned off oxygen today #3 possible chronic obstructive pulmonary disease-patient uses an inhaler on a chronic basis Total clinical time spent by myself addressing the patient's medical issues, reviewing all of his data, and collaborating with patient's care team: 35- minutes Charges/Coding Visit Charges Inpatient E&M: 80473 Subs Hosp L2
[2024-08-11 03:46] VITALS: BP 152/90; PULSE 81; RESP 18; TEMP 36.6; O2SAT 96
[2024-08-11] MEDS: Ipratropium/Albuterol Sulfate 3 ML AMPUL.NEB INHALATION (07:48)
[2024-08-11 07:49] VITALS: PULSE 78; RESP 16; O2SAT 95
[2024-08-11 08:51] VITALS: BP 111/63; PULSE 86; RESP 16; TEMP 36.3; O2SAT 96
[2024-08-11] MEDS: Acetaminophen 325 MG Tablet 650 MG PO (08:54)
[2024-08-11] MEDS: Azithromycin 250 MG Tablet 500 MG PO (08:55)
[2024-08-11] MEDS: dexAMETHasone 4 MG Tablet 6 MG PO (08:55)
--- NOTE | 2024-08-11 09:35 | CASEMGMT ---
Social Work- SW called to set up transport for pt. SW set transport 10-12. Confirmation: [id number] Bedside nurse notified. principal secretary and physician notified. EVAN Gasca
== END 2024-08-11 10:51 | disposition home or self-care (01) | DRG 137 ==
LOC: ED 09:35 → MS3 10:05
PROVIDERS: Internal Medicine Critical Care Medicine; Admitting Provider Internal Medicine; Emergency Provider Emergency Medicine; PCP Nurse Practitioner Family; Visit Provider Internal Medicine
PROC: 0BJ08ZZ Inspection of Tracheobronchial Tree, Via Natural or Artificial Opening Endoscopic (ICD-10-PCS; CPT 31622; principal; 2024-08-09 13:00)
DX: U07.1 COVID-19 (principal); J96.01 Acute respiratory failure with hypoxia; E44.0 Moderate protein-calorie malnutrition; J14 Pneumonia due to Hemophilus influenzae; J12.82 Pneumonia due to coronavirus disease 2019; E87.20 Acidosis, unspecified; J47.0 Bronchiectasis with acute lower respiratory infection; F17.210 Nicotine dependence, cigarettes, uncomplicated; J43.9 Emphysema, unspecified; J20.8 Acute bronchitis due to other specified organisms; J44.0 Chronic obstructive pulmonary disease with (acute) lower respiratory infection; R04.2 Hemoptysis; Z79.51 Long term (current) use of inhaled steroids; R93.89 Abnormal findings on diagnostic imaging of other specified body structures; R09.89 Other specified symptoms and signs involving the circulatory and respiratory systems; Z59.00 Homelessness unspecified; R05.3 Chronic cough; Z57.2 Occupational exposure to dust; Z68.1 Body mass index [BMI] 19.9 or less, adult; B96.3 Hemophilus influenzae [H. influenzae] as the cause of diseases classified elsewhere; Z13.1 Encounter for screening for diabetes mellitus; Z13.220 Encounter for screening for lipoid disorders; R53.83 Other fatigue
CPT/HCPCS: 36415; 71046; 71250; 80048; 80053; 80061; 82306; 82550; 82607; 83036; 83605; 83615; 83735; 83880; 84145; 84443; 84484; 85025; 85610; 85730; 86140; 87015; 87040; 87070; 87077; 87086; 87116; 87205; 87206; 87449; 87631; 87641; 88108; 88305; 88312; 88313; 89050; 93005; 94640; 94668; 97802; 99252; 99285; A4216; G0463

== ENCOUNTER 2024-08-21 16:43 | Emergency (ER) | payer MEDICAID, SELFPAY ==
[2024-08-21 16:43] VITALS: BP 124/85; PULSE 103; RESP 29; TEMP 36.6; O2SAT 96; BMI 23.1
--- NOTE | 2024-08-21 16:52 | EKG12_ITS ---
Test Reason : cp Blood Pressure : */* mmHG Vent. Rate : 100 BPM Atrial Rate : 100 BPM P-R Int : 110 ms QRS Dur : 66 ms QT Int : 330 ms P-R-T Axes : 80 65 65 degrees QTcB Int : 425 ms Sinus rhythm with short OR Otherwise normal ECG Confirmed by ROBERTO NAVARRO, HALEY ([id number]), department editor SHARATH RODRIGUEZ ([id number]) on 08/23/2024 6:42:53 AM Referred By: Fawad Confirmed By: HALEY MEJIA MD
--- NOTE | 2024-08-21 16:56 | EDS_ITS ---
HPI <LANA Mcneal - Last Filed: 08/21/24 19:53> History of Present Illness Chief Complaint: Chest Pain Narrative Narrative: 58-year-old male with PMH of COPD, tobacco use presents with left-sided chest pain. He developed gradual onset pain in this area last night which worsened today and is frequent and sharp. Nothing seems to make it better or worse. It is not exertional or pleuritic. He has tried topical pain relievers and massaging the area. There is no radiation of pain. No back or abdominal pain or nausea or vomiting. He was admitted to the hospital 2 weeks ago for COVID- pneumonia and hypoxia and was treated for bacterial pneumonia as well with azithromycin. He followed up with the [facility] spine clinic and was prescribed Trelegy and an albuterol inhaler as needed. His cough has significantly improved with less sputum and no recent fever or chills. PFSH <LANA Mcneal - Last Filed: 08/21/24 19:53> [facility] Medical History Former smoker COPD (chronic obstructive pulmonary disease) Home Medications ?Medication ?Instructions ?Recorded ?Last Taken ?Type albuterol sulfate 90 mcg/actuation 2 puff inhalation Q 4H PRN dyspnea 08/07/24 Unknown History aerosol inhaler azithromycin 250 mg tablet 500 mg (2 x 250 mg) PO ARLEY Y #6 08/10/24 Unknown Rx (Zithromax) tabs dexamethasone 2 mg tablet 6 mg (3 x 2 mg) PO DAILY #12 tabs 08/10/24 Unknown Rx apixaban 5 mg (74 tabs) tablets in See Rx Instructions PO .COMPLEX 08/21/24 Unknown Rx a dose pack (Eliquis DVT-PE Treat #74 tabs 30D Start) oxycodone-acetaminophen 5 mg-325 1 tab PO Q6H PRN pain 5 days #20 08/21/24 Unknown Rx mg tablet (Percocet) tabs Allergy/AdvReac Type Severity Reaction Status Date / Time No Known Allergies Allergy Verified 08/21/24 16:48 Social History (Updated 08/21/24 @ 17:01 by Sofy Coreas) housing: apartment Smoking Status: Current every day smoker tobacco type: cigarettes ROS <LANA Mcneal - Last Filed: 08/21/24 19:53> ROS ED ROS Narrative Constitutional: Negative for fever, chills, malaise. CVS: Positive for chest pain. Negative for palpitations, syncope. Respiratory: Negative for shortness of breath. GI: Negative for abdominal pain, nausea, vomiting. EXAM <LANA Mcneal - Last Filed: 08/21/24 19:53> Physical Exam Narrative Exam Narrative: CONST: Patient sitting in no acute distress. EYES: Normal inspection. NECK: Normal inspection. RESP: No respiratory distress, CTAB. CVS: Regular rate and rhythm, no murmur, no gallop. SKIN: Color normal, no rash, warm, dry, intact. EXTREMITIES: Normal appearance, no pedal edema. NEURO: Alert and answering questions appropriately. PSYCH: Normal affect. Const Vital Signs: 08/21/24 16:43 08/21/24 17:00 08/21/24 17:00 Temperature 98 F Temperature Source Oral Pulse Rate 103 H Respiratory Rate 29 H Respiratory Effort Normal Non-Labored Blood Pressure 124/85 H Blood Pressure Mean 98 Pulse Ox 96 95 Oxygen Delivery Method Room Air Room Air 08/21/24 17:43 08/21/24 18:00 08/21/24 19:00 Temperature Temperature Source Pulse Rate 95 91 89 Respiratory Rate 16 20 H 17 Respiratory Effort Blood Pressure 122/77 H 111/71 123/84 H Blood Pressure Mean 92 84 97 Pulse Ox 98 98 95 Oxygen Delivery Method Room Air 08/21/24 19:44 Temperature 98.1 F Temperature Source Pulse Rate 96 Respiratory Rate 18 Respiratory Effort Blood Pressure 128/76 H Blood Pressure Mean 93 Pulse Ox 96 Oxygen Delivery Method <Dr. Mariaa Tavarez DO - Last Filed: 08/21/24 16:58> Physical Exam Const Vital Signs: 08/21/24 16:43 08/21/24 17:00 08/21/24 17:00 Temperature 98 F Temperature Source Oral Pulse Rate 103 H Respiratory Rate 29 H Respiratory Effort Normal Non-Labored Blood Pressure 124/85 H Blood Pressure Mean 98 Pulse Ox 96 95 Oxygen Delivery Method Room Air Room Air 08/21/24 17:43 08/21/24 18:00 08/21/24 19:00 Temperature Temperature Source Pulse Rate 95 91 89 Respiratory Rate 16 20 H 17 Respiratory Effort Blood Pressure 122/77 H 111/71 123/84 H Blood Pressure Mean 92 84 97 Pulse Ox 98 98 95 Oxygen Delivery Method Room Air 08/21/24 19:44 Temperature 98.1 F Temperature Source Pulse Rate 96 Respiratory Rate 18 Respiratory Effort Blood Pressure 128/76 H Blood Pressure Mean 93 Pulse Ox 96 Oxygen Delivery Method [facility] <LANA Mcneal - Last Filed: 08/21/24 19:53> [facility] Narrative Medical decision making narrative: Differential includes but not limited to ACS, PE, pneumonia, chest wall pain 58-year-old male has left-sided chest pain that started last night and worsened today. It feels like a sharp stabbing pain. He has no shortness of breath. He had COVID pneumonia 2 weeks ago and his cough has significantly improved. Cardiopulmonary exam is normal. He has no reproducible pain of his chest wall and no abdominal or flank tenderness. Labs show WBC of 16.2 however this is trending down from previous. Hemoglobin of 12.0 is baseline. BMP unremarkable. EKG is nonischemic and serial troponins are 8 and delta pending. His D-dimer was elevated so a CTA was obtained which shows small bilateral PEs. There is no saddle embolus and no evidence of right heart strain. He is not hypoxic however was having significant pain but feels much better after IV morphine and Toradol he received initially. He is comfortable with outpatient management as long as he can be prescribed something for pain. I prescribed Percocet and Eliquis with a first dose given here and prescriptions arranged through meds to bed. Also incidentally shows thickening of the distal esophagus. He was informed of these findings and given a copy of the report as well as a GI referral. I discussed the importance of follow-up to rule out underlying cancer. He states ksenia has been helping him arrange all his follow-ups and is comfortable managing this. He was discharged in stable condition. I have personally performed a face to face assessment of the patient and have reviewed the TRACI Note. I performed a substantive portion of the visit including all aspects of the following. My walsh findings include: History is [patient presents the emergency department complaint of left-sided chest pain that started last evening. Had a gradually started and worsened. He describes it as an ice pick stabbing him in the chest. Denies nausea or vomiting. Denies significant shortness of breath but hurts more with deep breath. States he had COVID recently but thought he recovered. Patient denies lifting or straining. He has not had pain like this before. He denies abdominal pain. Pain is 10 out of 10.] Exam is [HEENT-PERRLA, EOMI. Cranial nerves II through XII grossly intact. TMs clear. Mucous membranes moist. No adenopathy. Cardiovascular-regular rate and rhythm without murmur or ectopy Lungs-clear to auscultation, chest wall stable without crepitus or subcu emphysema. Patient has tenderness to palpation over the left lower anterior chest wall that seems to somewhat reproduces pain. There is no crepitus or subcutaneous emphysema. No erythema or warmth noted. Abdomen-normoactive bowel sounds, soft, nontender, no rebound or rigidity, no peritoneal signs. Extremities-intact ?4, normal range of motion, normal pulses, atraumatic] Medical Decison Making [ ] Other additions or changes: [None] Lab Data Attestation: I reviewed the patient's lab results. Labs: Laboratory Results - last 24 hr 08/21/24 08/21/24 16:52 19:04 WBC 16.2 H RBC 4.07 L Hgb 12.0 L Hct 37.3 L MCV 91.6 MCH 29.5 MCHC 32.2 RDW Std Deviation 52.6 H RDW Coeff of Yogesh 15.8 H Plt Count 384 MPV 9.7 Immature Gran % (Auto) 0.700 Neut % (Auto) 67.3 Lymph % (Auto) 19.1 [place] % (Auto) 11.2 H Eos % (Auto) 1.3 Baso % (Auto) 0.4 Absolute Neuts (auto) 10.9 H Absolute Lymphs (auto) 3.09 Nucleated RBC % 0 Diff Path Review May foll Atypical Lymphocytes 1+ Reactive Lymphocytes 1+ D-Dimer Quant (PE/DVT) 1.09 H* Sodium 139 Potassium 4.4 Chloride 105 Carbon Dioxide 21.2 Anion Gap 13 BUN 25 H Creatinine 0.93 Estim Creat Clear Calc 81.93 Est GFR (MDRD) Non-Af 96 BUN/Creatinine Ratio 27.3 H Glucose 103 H Calcium 9.1 Troponin T High Sens 8 D Troponin T Hi Sens 2 Hr 11 Radiography Diagnostic Testing: Clinical Impression(s) from Imaging Studies Chest X-Ray 08/21/24 17:05 IMPRESSION: Emphysema. No new infiltrate. Reading Location: [facility] Chest CTA 08/21/24 17:41 IMPRESSION: Small bilateral pulmonary embolism. No evidence of right heart strain. Bronchial thickening. Emphysema. Motion degraded examination. Patchy bibasilar atelectasis Thickening of distal esophagus presumably some component of esophagitis Results communicated verbally to the referring clinician at the time of dictatio n Reading Location: [facility] ED attending interpretation of 2 view chest x-ray shows normal heart size, no infiltrate. <Dr. Mariaa Tavarez, DO - Last Filed: 08/21/24 16:58> MDM MDM Narrative Medical decision making narrative: I have personally performed a face to face assessment of the patient and have reviewed the TRACI Note. I performed a substantive portion of the visit including all aspects of the following. My walsh findings include: History is [patient presents the emergency department complaint of left-sided c hest pain that started last evening. Had a gradually started and worsened. He describes it as an ice pick stabbing him in the chest. Denies nausea or vomiting. Denies significant shortness of breath but hurts more with deep breath. States he had COVID recently but thought he recovered. Patient denies lifting or straining. He has not had pain like this before. He denies abdominal pain. Pain is 10 out of 10.] Exam is [HEENT-PERRLA, EOMI. Cranial nerves II through XII grossly intact. TMs clear. Mucous membranes moist. No adenopathy. Cardiovascular-regular rate and rhythm without murmur or ectopy Lungs-clear to auscultation, chest wall stable without crepitus or subcu emphysema. Patient has tenderness to palpation over the left lower anterior chest wall that seems to somewhat reproduces pain. There is no crepitus or subcutaneous emphysema. No erythema or warmth noted. Abdomen-normoactive bowel sounds, soft, nontender, no rebound or rigidity, no peritoneal signs. Extremities-intact ?4, normal range of motion, normal pulses, atraumatic] Medical Decison Making [ ] Other additions or changes: [None] Lab Data Labs: Laboratory Results - last 24 hr 08/21/24 08/21/24 16:52 19:04 WBC 16.2 H RBC 4.07 L Hgb 12.0 L Hct 37.3 L MCV 91.6 MCH 29.5 MCHC 32.2 RDW Std Deviation 52.6 H RDW Coeff of Yogesh 15.8 H Plt Count 384 MPV 9.7 Immature Gran % (Auto) 0.700 Neut % (Auto) 67.3 Lymph % (Auto) 19.1 [place] % (Auto) 11.2 H Eos % (Auto) 1.3 Baso % (Auto) 0.4 Absolute Neuts (auto) 10.9 H Absolute Lymphs (auto) 3.09 Nucleated RBC % 0 Diff Path Review May foll Atypical Lymphocytes 1+ Reactive Lymphocytes 1+ D-Dimer Quant (PE/DVT) 1.09 H* Sodium 139 Potassium 4.4 Chloride 105 Carbon Dioxide 21.2 Anion Gap 13 BUN 25 H Creatinine 0.93 Estim Creat Clear Calc 81.93 Est GFR (MDRD) Non-Af 96 BUN/Creatinine Ratio 27.3 H Glucose 103 H Calcium 9.1 Troponin T High Sens 8 D Troponin T Hi Sens 2 Hr 11 Radiography Diagnostic Testing: Clinical Impression(s) from Imaging Studies Chest X-Ray 08/21/24 17:05 IMPRESSION: Emphysema. No new infiltrate. Reading Location: [facility] Chest CTA 08/21/24 17:41 IMPRESSION: Small bilateral pulmonary embolism. No evidence of right heart strain. Bronchial thickening. Emphysema. Motion degraded examination. Patchy bibasilar atelectasis Thickening of distal esophagus presumably some component of esophagitis Results communicated verbally to the referring clinician at the time of dictation Reading Location: [facility] Discharge Plan Triage Chief Complaint: Chest Pain ED Midlevel Provider: Amy Masterson ED Provider: Mariaa Tavarez Dx/Rx/DC Orders Clinical Impression: Bilateral pulmonary embolism, Chest pain Instructions: Embolism Pulmonary Dc Prescriptions: New oxycodone-acetaminophen [Percocet] 5-325 mg tablet 1 tab PO Q6H PRN (Reason: pain) 5 Days Qty: 20 0RF Eliquis DVT-PE Treat 30D Start 5 mg (74 tabs) tablets,dose pack See Rx Instructions .ROUTE .COMPLEX Qty: 74 0RF Rx Instructions: orally per package directions No Action albuterol sulfate 90 mcg/actuation HFA aerosol inhaler 2 puff INHALATION Q4H PRN (Reason: dyspnea) Patient Comments: pt needs refilled azithromycin [Zithromax] 250 mg tablet 500 mg PO DAILY Qty: 6 0RF Rx Instructions: start on 08/11/24 dexamethasone 2 mg tablet 6 mg PO DAILY Qty: 12 0RF Rx Instructions: three daily starting 08/10/24 Primary Care Provider: Kelli Morejon Referrals: Judson Velarde DO [Med Staff - Active Staff] - Kelli Morejon, [employer] [Primary Care Provider] - Activity Restrictions/Additional Instructions: You have blood clots in both lungs which is the source of your pain. At this time you do not need admitted because you are not requiring oxygen and your pain level is under control. I prescribed Eliquis which is a blood thinner to treat the clots. It increases her risk of bleeding. If you hit your head or have a major accident you need to be seen in the emergency room immediately to rule out internal bleeding. If you see any blood in your vomit, urine, or stool you need evaluated right away. I also prescribed oxycodone for pain. While on a blood thinner you need to avoid medications like ibuprofen, Advil, or naproxen and either only take Percocet or Tylenol as needed for pain. Follow-up with the [facility]. The CT scan of your chest also showed thickening of your lower esophagus which needs evaluated by a lean specialist. Call Dr. Velarde's office for an appointment. Print Language: Uruguayan Disposition Disposition: Home, Self Care Discharge Date/Time: 08/21/24 19:52
[2024-08-21 17:00] VITALS: O2SAT 95
--- NOTE | 2024-08-21 17:05 | RAD_ITS ---
PROCEDURE: CHEST 1 VIEW (PORTABLE) 08/21/2024 REASON FOR EXAM: CHEST PAIN TECHNIQUE: Frontal and lateral views of the chest. COMPARISON: CT 07/2024 FINDINGS: Bronchial thickening. Emphysema. No pneumothorax. No pleural effusion. No new infiltrate. Normal heart size and mediastinum RAD/Chest 1 View (Portable) IMPRESSION: Emphysema. No new infiltrate. Reading Location: [id number]
[2024-08-21] MEDS: Ondansetron 4 MG/2 ML Vial IV (17:06)
[2024-08-21] MEDS: Morphine 4 MG/ML Syringe IV (17:07)
[2024-08-21] MEDS: Ketorolac 15 MG/ML Vial IV (17:07)
[2024-08-21 17:15] LABS: Absolute Lymphocyte Count 3.09 X10^3/uL (0.83-4.51); Absolute Neutrophil Count 10.9 X10^3/uL (2.0-7.7); Basophil# 0.07 X10^3/uL; Basophil% 0.4 % (0-1); Eosinophil# 0.21 X10^3/uL; Eosinophils% 1.3 % (0-5); Hematocrit 37.3 % (40-54); Lymphocyte # 3.09 X10^3/ul (0.83-4.51); Lymphocyte % 19.1 % (19-41); Mean Corp Hgb Conc 32.2 g/dL (32-36); Mean Corpuscular Hgb 29.5 pg (27.0-32.0); Mean Corpuscular Volume 91.6 fL (80-94); Mean Platelet Vol. 9.7 fl (6.2-12.0); Monocyte# 1.81 X10^3/uL; Monocyte% 11.2 % (0-10); NRBC Flagged by Analyzer 0 % (0-5); Neutrophil # 10.91 X10^3/uL (2.7-7.7); Neutrophil % 67.3 % (47-70); POSITIVE DIFFERENTIAL YES; Platelet Count 384 K/mm3 (150-450); RBC Distribution Width CV 15.8 % (11.6-14.6); RBC Distribution Width SD 52.6 fl (35.1-43.9); Red Blood Count 4.07 M/mm3 (4.6-6.2); White Blood Count 16.2 K/mm3 (4.4-11.0)
[2024-08-21 17:24] LABS: Anion Gap 13 (5-15); BUN 25 mg/dL (4-19); BUN/Creat Ratio 27.3 RATIO (10-20); Calcium,Total 9.1 mg/dL (7.6-11.0); Carbon Dioxide 21.2 mmol/L (21.0-32.0); Chloride 105 mmol/L (98-108); Creatinine, Serum 0.93 mg/dL (0.70-1.20); EST Glomerular Filtration Rate 96 (>60); Estimated Creatinine Clearance 81.93 ml/min (50-250); Glucose 103 mg/dL (70-99); Potassium 4.4 mmol/L (3.3-5.1); Sodium Level 139 mmol/L (133-145); Troponin T High Sensitivity 8 ng/L (<=22)
[2024-08-21 17:35] LABS: Differential Indicated SCAN CRITERIA MET
[2024-08-21 17:39] LABS: D-Dimer Quantitative (DVT/PE) 1.09 FEU/ug/m (0.27-0.49)
--- NOTE | 2024-08-21 17:41 | CT_ITS ---
PROCEDURE: CTA CHEST W/WO CONTRAST REASON FOR EXAM: CHEST PAIN TECHNIQUE: Axial CTA images of the chest were performed with intravenous contrast material. Coronal and Sagittal reconstruction series were provided. 3D, 3D post processing, 3D reconstructions, Maximum intensity projection (MIPs) Volume rendering and Shaded surface rendering was provided. Intravenous contrast administered One or more dose reduction techniques were used (e.g., Automated exposure control, adjustment of the mA and/or kV according to patient size, use of iterative reconstruction technique). COMPARISON: 08/07/2024 FINDINGS: There is small volume bilateral subsegmental pulmonary embolism. Reference image 103 in the right lower lobe, left lower lobe subsegmental posterior embolism on image 115. There is motion degradation. Background emphysema and bronchial thickening. Patchy bibasilar atelectasis noted. No evidence of right heart strain. Thickening of the distal esophagus. Query esophagitis. No pneumothorax. No pleural effusion Stable lymph nodes presumed reactive. CT/CTA Chest W/WO Contrast IMPRESSION: Small bilateral pulmonary embolism. No evidence of right heart strain. Bronchial thickening. Emphysema. Motion degraded examination. Patchy bibasil ar atelectasis Thickening of distal esophagus presumably some component of esophagitis Results communicated verbally to the referring clinician at the time of dictati on Reading Location: [id number]
--- NOTE | 2024-08-21 17:42 | ED.RN ---
Critical D Dimer 1.09. Amy SCHWARTZ notified
[2024-08-21 17:43] VITALS: BP 122/77; PULSE 95; RESP 16; O2SAT 98
[2024-08-21 18:00] VITALS: BP 111/71; PULSE 91; RESP 20; O2SAT 98
[2024-08-21 18:27] LABS: Atypical Lymphocyte 1+ %; Reactive Lymphocyte 1+
[2024-08-21 18:28] LABS: Pathologist Review May foll
[2024-08-21 19:00] VITALS: BP 123/84; PULSE 89; RESP 17; O2SAT 95
[2024-08-21] MEDS: oxyCODONE 5 MG Tablet PO (19:21)
[2024-08-21] MEDS: APIXABAN 5 MG TABLET 10 MG PO (19:21)
[2024-08-21 19:39] LABS: Troponin T High Sens 2 HR 11 ng/L (<=22)
[2024-08-21 19:44] VITALS: BP 128/76; PULSE 96; RESP 18; TEMP 36.7; O2SAT 96
== END 2024-08-21 19:52 | disposition home or self-care (01) ==
PROVIDERS: Physician Assistant; Emergency Provider Emergency Medicine; PCP Nurse Practitioner Family; Visit Provider Emergency Medicine
DX: I26.99 Other pulmonary embolism without acute cor pulmonale (principal); J44.9 Chronic obstructive pulmonary disease, unspecified; F17.210 Nicotine dependence, cigarettes, uncomplicated; R07.89 Other chest pain
CPT/HCPCS: 71045; 71275; 80048; 84484; 85025; 85379; 93005; 96374; 96375; 99285; Q9967; A4216; J2405

== ENCOUNTER → 2025-04-01 | Outpatient (CLI) | payer MEDICAID, SELFPAY | END | disposition home or self-care (01) | LOC: PSN 11:30 | PROVIDERS: PCP Nurse Practitioner Family; Referring Provider Nurse Practitioner Family; Visit Provider Nurse Practitioner Family | DX: J44.9 Chronic obstructive pulmonary disease, unspecified (principal) | CPT/HCPCS: 94060; 94726; 94729 ==